=== PATIENT | female | born 1975 | race Caucasian/White ===

== ENCOUNTER → 2017-04-02 | Outpatient (CLI) | payer OTHER ==
[~2017-04-02] MED LIST: ALBUAER19 INH; BUPR-102 PO; BUPR8MIS UT; GADAVIST IV PRN; MULT-222 PO; ONDA8TAB6 PO; RANI150T2 PO
--- NOTE | 2017-04-02 14:43 | DIAGNOSTIC IMAGING REPORT ---
Brain MRI WITH AND WITHOUT CONTRAST HISTORY: ANOSMIA TECHNIQUE: Multiplanar multisequence MRI of the brain was performed both before and after the intravenous administration of contrast. COMPARISON STUDY: Head CT 08/13/2013. FINDINGS: There are no areas of restricted diffusion to suggest acute infarction. The midline structures are intact. Mild mucosal thickening within the ethmoid air cells. No fluid levels within the paranasal sinuses.. The mastoid air cells are clear. The ventricles and sulci are within normal limits for age. There is no mass, hematoma, midline shift. The major vascular flow-voids at the skull base are well maintained. Postcontrast sequences show no areas of abnormal enhancement. IMPRESSION: No acute intracranial abnormality. Electronically signed by: Don Ordaz M.D. 04/02/2017 2:42 PM Dictated Date/Time: 04/02/2017 2:13 PM
== END | disposition home or self-care (01) ==
LOC: C.OPENMRI 12:52
PROVIDERS: ATTEND Otolaryngology
DX: R43.0 Anosmia (principal)

== ENCOUNTER 2024-10-01 15:43 | Observation (INO) ==
--- NOTE | 2024-10-01 16:21 | Emergency Department Note ---
History of Present Illness General Chief complaint: Back Injury/Pain Stated complaint: BACK PAIN/INJURY Time Seen by Provider: 10/01/24 16:20 History of Present Illness Maximum Pain Intensity: 8 This is a 49-year-old female that presents to the emergency department via private vehicle with complaints of "back pain". 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 She notes pain since that time. She also notes new onset stool incontinence. She also feels like the legs feel a bit weak. Patient does also note some abdominal pain. No fever. Patient denies any history of L-spine surgery. She denies any IV drug use. Pain worse with movement and mildly better with rest. Home Medications Medication Instructions Recorded Confirmed Type buprenorphine 8 mg-naloxone 2 mg 2 film sublingual BID 06/25/21 10/01/24 History sublingual film ondansetron HCl 4 mg tablet 4 mg PO Q8H PRN Nausea 11/19/21 10/01/24 History methocarbamol 500 mg tablet 500 mg PO Q8H #14 tabs 05/29/24 10/01/24 Rx dextroamphetamine-amphetamine 20 20 mg PO DAILY 10/01/24 10/01/24 History mg tablet duloxetine 20 mg capsule,delayed 40 mg PO DAILY 10/01/24 10/01/24 History release duloxetine 60 mg capsule,delayed 60 mg PO HS 10/01/24 10/01/24 History release lisinopril 10 mg tablet 10 mg PO DAILY 10/01/24 10/01/24 History apxyluwc-zuha-mpgl 8 mg-folic 400 1 tab PO DAILY 10/01/24 10/01/24 History mcg-K 50 mcg-lutein 300 mcg tablet (Multivitamin Women 50 Plus) Allergies Allergy/AdvReac Type Severity Reaction Status Date / Time iodine Allergy Mild RASH Verified 10/01/24 21:24 adhesive AdvReac Intermediate RASH Verified 10/01/24 21:24 Past Med/Surg History Problem List (Updated 10/02/24 @ 11:35 by Cong Stanley DO) Hypoglycemia Opioid dependence on maintenance agonist therapy, no symptoms UTI due to Klebsiella species Pars defect of lumbar spine Degenerative disc disease at L5-S1 level Bilateral lumbar radiculopathy Neural foraminal stenosis of lumbosacral spine UTI (urinary tract infection) (Acute) Back pain (Acute) COVID-19 (Acute) SOB (shortness of breath) (Acute) Acute bronchitis (Acute) Spinal stenosis of lumbar region (Chronic) Contusion of foot (Acute) Dental abscess (Acute) Post-operative infection (Acute) SOB (shortness of breath) (Acute) Social History Smoking Status: Unknown if ever smoked Tobacco Type: Cigarettes Hx Alcohol Use: No Hx Substance Use: No Preferred Language: Sami Communication Ability: Effective Orthodontic Technician Assistant Required: No Beliefs That Will Affect Care: None Current Living Situation: Family Feels Safe at Home: Yes Assistive Devices: Cane Review of Systems A total of 10 systems reviewed and were otherwise negative Physical Exam Vital Signs Vital Signs - 24 hr 10/01/24 19:18 10/01/24 19:30 10/01/24 20:30 Pulse Rate 100 H 101 H Pulse Rate [Apical] 93 H Pulse Rate from SpO2 Sensor 100 H 101 H Respiratory Rate 20 20 18 Blood Pressure 157/109 H 160/91 H Blood Pressure [Left Arm] 136/107 H Blood Pressure Mean 125 136 Blood Pressure Mean [Left Arm] 116 Blood Pressure Position [Left Arm] Sitting Pulse Oximetry 100 100 98 Oxygen Delivery Method Room Air Room Air Room Air 10/01/24 20:33 10/01/24 21:00 10/01/24 21:03 Pulse Rate 97 H 94 H Pulse Rate [Apical] 89 Pulse Rate from SpO2 Sensor 97 H 94 H Respiratory Rate 16 18 18 Blood Pressure 136/107 H 152/90 H Blood Pressure [Left Arm] 179/113 H Blood Pressure Mean 116 110 Blood Pressure Mean [Left Arm] 135 Blood Pressure Position [Left Arm] Sitting Pulse Oximetry 99 96 96 Oxygen Delivery Method Room Air Room Air Room Air VITAL SIGNS - Vital signs and nursing notes were reviewed. Hypertensive, otherwise stable and afebrile. GENERAL -49-year-old female appearing her stated age who is in no acute distress. Communicates well with provider and answers questions appropriately. SKIN - Without rashes. No meningeal or petechial rash. The skin overlying the low back is unremarkable. HEAD - NC/AT. EYES - PERRL with EOMI bilaterally. Sclera anicteric. EARS - No deformities of external structures noted on gross examination bilaterally. NOSE - Midline and without cyanosis. No epistaxis or purulent drainage noted. MOUTH/OROPHARYNX - Without perioral cyanosis. NECK - Neck with FROM. No nuchal rigidity. LUNGS - CTA CARDIAC - RRR ABDOMEN - Abdominal contour normal without pulsations or visible masses. BS normoactive all four quadrants. Generalized abdominal tenderness predominantly on the left mid abdomen. No rigidity. No palpable masses, hepatosplenomegaly, or ascites noted. EXTREMITIES - No clubbing or peripheral cyanosis. +5/5 strength noted in UE/LE bilaterally. NEUROLOGIC - Cranial nerves grossly intact. PSYCH -alert, oriented and pleasant on exam. Course Administered Medications Acetaminophen (Acetaminophen 500 Mg Tab) 1,000 mg PO Q8 BROOKS Stop: 11/01/24 13:59 Last Admin: 10/02/24 14:15 Dose: 1,000 mg Documented By: MNQuintin Co-signed By: ROB Amphetamine/Dextroamphetamine (Dextroamphetamine/Amphetamine Ir 20 Mg Tab) 20 mg PO DAILY [facility] Stop: 10/16/24 08:59 Last Admin: 10/02/24 09:58 Dose: 20 mg Documented By: MARIA EUGENIA Buprenorphine HCl (Buprenorphine Hcl 2 Mg Subl) 4 mg SL Q3H PRN PRN Reason: Pain Stop: 11/01/24 11:21 Last Admin: 10/02/24 15:14 Dose: 4 mg Documented By: TAI Co-signed By: SOHA Admin: 10/02/24 12:14 Dose: 4 mg Documented By: MARIA EUGENIA Enoxaparin Sodium (Enoxaparin Inj 40 Mg/0.4 Ml Syr) 40 mg SQ PM [facility]OOKS Stop: 10/31/24 22:46 Last Admin: 10/01/24 23:45 Dose: 40 mg Documented By: ANNALEE Gabapentin (Gabapentin 300 Mg Cap) 300 mg PO TID [facility]KS Stop: 11/01/24 13:59 Last Admin: 10/02/24 15:02 Dose: 300 mg Documented By: TAI Co-signed By: SOHA Lidocaine (Lidocaine 5% 1 Patch) 1 patch TD QAM [facility]KS Stop: 11/01/24 11:29 Last Admin: 10/02/24 12:48 Dose: 1 patch Documented By: MARIA EUGENIA Lisinopril (Lisinopril 10 Mg Tab) 10 mg PO DAILY [facility] Stop: 11/01/24 08:59 Last Admin: 10/02/24 08:53 Dose: 10 mg Documented By: MARIA EUGENIA Methocarbamol (Methocarbamol 500 Mg Tablet) 500 mg PO TID [facility] Stop: 11/01/24 13:59 Last Admin: 10/02/24 14:18 Dose: 500 mg Documented By: TAI Co-signed By: ROB Multivitamins/Minerals (Cerovite Adv Formula Tab) 1 tab PO DAILY [facility]KS Stop: 11/01/24 08:59 Last Admin: 10/02/24 08:53 Dose: 1 tab Documented By: MARIA EUGENIA Discontinued Medications Acetaminophen (Acetaminophen 325 Mg Tab) 650 mg PO Q4H PRN PRN Reason: Pain or Fever Stop: 10/31/24 22:46 Last Admin: 10/02/24 06:05 Dose: 650 mg Documented By: Buprenorphine/Naloxone (Buprenorphine/Naloxone 8/2 Mg Tab) 2 tab SL BID BROOKS Stop: 11/01/24 11:29 Last Admin: 10/02/24 12:09 Dose: Not Given Documented By: MARIA EUGENIA Duloxetine HCl (Duloxetine Hcl 20 Mg Cap) 40 mg PO DAILY [facility] Stop: 11/01/24 08:59 Last Admin: 10/02/24 08:54 Dose: 40 mg Documented By: MARIA EUGENIA Hydromorphone HCl (Hydromorphone Inj 0.5 Mg/0.5 Ml Syr) 0.5 mg IV Q6H PRN PRN Reason: Mod-Sev Pain (Scale 4-10) Stop: 10/15/24 22:46 Last Admin: 10/02/24 03:59 Dose: 0.5 mg Documented By: Ceftriaxone Sodium (Rocephin) 2,000 mg in 50 mls @ 100 mls/hr IV NOW STA Stop: 10/01/24 20:54 Last Infusion: 10/01/24 21:46 Dose: Infused Documented By: Admin: 10/01/24 20:30 Dose: 100 mls/hr Documented By: PAUL Dextrose/Sodium Chloride (D5w And 1/2nss) 1,000 mls @ 80 mls/hr IV .[id number] BROOKS Stop: 10/02/24 22:46 Last Admin: 10/02/24 11:51 Dose: Not Given Documented By: MARIA EUGENIA Infusion: 10/02/24 11:50 Dose: Infused Documented By: MARIA EUGENIA Admin: 10/01/24 23:45 Dose: 80 mls/hr Documented By: ANNALEE Ioversol (Optiray 320 100ml) 91 ml IV ONCE ONE Stop: 10/01/24 19:42 Last Admin: 10/01/24 19:41 Dose: 91 ml Documented By: SRINIVASA Lorazepam (Lorazepam 1 Mg Tab) 0.5 mg SL NOW STA Stop: 10/01/24 17:38 Last Admin: 10/01/24 17:47 Dose: 0.5 mg Documented By: MARTY Methocarbamol (Methocarbamol 500 Mg Tablet) 500 mg PO Q8H BROOKS Stop: 10/31/24 22:59 Last Admin: 10/02/24 08:54 Dose: 500 mg Documented By: MARIA EUGENIA Admin: 10/01/24 23:45 Dose: 500 mg Documented By: ANNALEE Morphine Sulfate (Morphine Sulfate 4 Mg/Ml 1 Ml Carp\\Vial) 4 mg IV NOW STA Stop: 10/01/24 16:33 Last Admin: 10/01/24 16:49 Dose: 4 mg Documented By: MARTY Ondansetron HCl (Ondansetron Inj 2 Mg/Ml 2 Ml Vial) 4 mg IV NOW STA Stop: 10/01/24 16:33 Last Admin: 10/01/24 16:48 Dose: 4 mg Documented By: MARTY Medical Decision Making Laboratory Data 10/02/24 03:08 10/02/24 10:24 Lab Results 10/01/24 10/01/24 10/01/24 Range/Units 16:40 17:50 18:20 WBC 8.93 (4.8-10.8) K/ul RBC 4.78 (4.20-5.40) M/uL Hgb 13.4 (12.0-16.0) g/dl Hct 40.2 (37.0-47.0) % MCV 84.1 (80.0-100.0) fL MCH 28.0 (25.0-34.0) pg MCHC 33.3 (32.0-36.0) g/dL RDW Std Deviation 40.4 (36.4-46.3) fL RDW Coeff of Bryce 13.2 (11.5-14.5) % Plt Count 327 (130-400) K/uL MPV 10.1 (9.4-12.4) fL Immature Gran % (Auto) 0.3 % Neut % (Auto) 56.0 % Lymph % (Auto) 32.1 % Webb % (Auto) 7.5 % Eos % (Auto) 3.5 % Baso % (Auto) 0.6 % Neut # (Auto) 5.00 (1.40-6.50) K/uL Lymph # (Auto) 2.87 (1.20-3.40) K/uL Webb # (Auto) 0.67 H (0.11-0.59) K/uL Eos # (Auto) 0.31 (0.00-0.50) K/uL Baso # (Auto) 0.05 (0.00-0.20) K/uL Immature Gran # (Auto) 0.03 (0.01-0.20) K/uL Sodium 138 (136-145) mmol/L Potassium 3.5 (3.5-5.1) mmol/L Chloride 105 (98-107) mmol/L Carbon Dioxide 27 (21-32) mmol/L Anion Gap 6 (3-11) BUN 17 (6-23) mg/dl Creatinine 0.67 (0.6-1.2) mg/dl Est Cr Clr Drug Dosing 117.4 ml/min eGFR 106.41 BUN/Creatinine Ratio 25.4 H (10-20) Glucose 32 L* (70-99(Fasting)) mg/dl POC Glucose 82 (70-99) mg/dl Calcium 10.2 (8.6-10.3) mg/dl Magnesium 2.1 (1.7-2.4) mg/dl Total Bilirubin 0.5 (0.2-1.0) mg/dl AST 16 (13-39) U/L ALT 13 (7-52) U/L Alkaline Phosphatase 149 H (34-104) U/L Total Protein 8.1 (6.0-8.3) gm/dl Albumin 4.4 (3.4-5.0) gm/dl Globulin 3.7 (2.5-4.0) gm/dl Albumin/Globulin Ratio 1.2 (0.9-2) Lipase 13 (11-82) U/L Urine Color Yellow Urine Appearance Clear (Clear) Urine pH 5.5 (4.5-7.5) Ur Specific Crescent 1.013 (1.000-1.030) Urine Protein Negative (Negative) Urine Glucose (UA) Negative (Negative) Urine Ketones Negative (Negative) Urine Blood Negative (Negative) Urine Nitrite Positive A (Negative) Urine Bilirubin Negative (Negative) Urine Urobilinogen Negative (Negative) Ur Leukocyte Esterase Trace H (Negative) Urine WBC (Auto) 0-5 (0-5) /hpf Urine RBC (Auto) 0-2 (0-2) /hpf U Hyaline Cast (Auto) 0-2 (0-2) /lpf U Epithel Cells (Auto) 6-10 H (0-2) /hpf Urine Bacteria (Auto) 4+ H (None Seen) Imaging Data Radiologist's Impression: Lumbar Spine MRI 10/01/24 16:32 Exam(s): MRI L SPINE Without Contrast EXAM: MR Lumbar Spine Without Intravenous Contrast CLINICAL HISTORY: Reason for exam: low back, bowel incontinence, legs weak. TECHNIQUE: Magnetic resonance images of the lumbar spine without intravenous contrast in multiple planes. COMPARISON: CT scan from August 13, 2013 FINDINGS: Vertebrae: There are chronic appearing bilateral pars defects at L5 and 6 mm grade 1 anterior listhesis of L5 on S1. No acute fracture. Spinal cord: Unremarkable. Normal signal. Soft tissues: Unremarkable. DISCS/SPINAL CANAL/NEURAL FORAMINA: L1-L2: Unremarkable. No significant disc disease. No stenosis. L2-L3: Unremarkable. No significant disc disease. No stenosis. L3-L4: Unremarkable. No significant disc disease. No stenosis. L4-L5: Unremarkable. No significant disc disease. No stenosis. L5-S1: Disc dehydration and loss of disc space height at L5-S1. There is 4 mm posterior disc bulge without spinal stenosis. There is moderate to severe bilateral neural foraminal narrowing. IMPRESSION: 1. There are chronic appearing bilateral pars defects at L5 and 6 mm grade 1 anterior listhesis of L5 on S1. 2. Disc dehydration and loss of disc space height at L5-S1. There is 4 mm posterior disc bulge without spinal stenosis. There is moderate to severe bilateral neural foraminal narrowing. Electronically signed by: Orlando Loaiza MD 10/01/24 19:35 PM Abdomen/Pelvis CT 10/01/24 16:39 Exam(s): CT ABDOMEN + PELVIS With Contrast IV Amt: 91 ml optiray 320 EXAM: CT Abdomen and Pelvis With Intravenous Contrast CLINICAL HISTORY: Reason for exam: Low back and abdominal pain. TECHNIQUE: Axial computed tomography images of the abdomen and pelvis with intravenous contrast. CTDI is 27.76 mGy and DLP is 1257.2 mGy-cm. Automated exposure control was utilized for the study. A dose lowering technique was utilized adhering to the principles of ALARA. CONTRAST: Patient received 91 ml optiray 320 of IV contrast COMPARISON: July 02, 2011 FINDINGS: Lung bases: Unremarkable. No mass. No consolidation. ABDOMEN: Liver: The liver is enlarged measuring 23 cm craniocaudad. No focal liver mass lesion is seen. Gallbladder and bile ducts: Slight biliary duct prominence postcholecystectomy. No choledocholithiasis is seen. Pancreas: Unremarkable. No mass. No ductal dilation. Spleen: Unremarkable. No splenomegaly. Adrenals: Unremarkable. No mass. Kidneys and ureters: There is a nonobstructive 3 mm calyceal calculus in the upper pole the right kidney. The kidneys are otherwise unremarkable. No hydronephrosis or ureterolithiasis is seen. Stomach and bowel: Unremarkable. No obstruction. No mucosal thickening. PELVIS: Appendix: The appendix is not visible. Bowel loops are nondilated. No pneumoperitoneum, free fluid, or acute inflammatory changes are seen involving the bowel. Bladder: Unremarkable. No mass. Reproductive: Unremarkable as visualized. ABDOMEN and PELVIS: Intraperitoneal space: See above. Bones/joints: There are chronic bilateral pars defects at L5 with 3 mm grade 1 anterolisthesis of L5 on S1. No acute fracture or destructive bone lesion is seen. No dislocation. Soft tissues: Unremarkable. Vasculature: Unremarkable. No abdominal aortic aneurysm. Lymph nodes: Unremarkable. No enlarged lymph nodes. IMPRESSION: 1. The appendix is not visible. Bowel loops are nondilated. No pneumoperitoneum, free fluid, or acute inflammatory changes are seen involving the bowel. 2. The liver is enlarged measuring 23 cm craniocaudad. No focal liver mass lesion is seen. 3. There is a nonobstructive 3 mm calyceal calculus in the upper pole the right kidney. The kidneys are otherwise unremarkable. No hydronephrosis or ureterolithiasis is seen. Electronically signed by: Orlando Loaiza MD 10/01/24 20:27 PM MDM Narrative Patient was seen and evaluated as above in room D01. Review was performed of triage nursing notes and vital signs. Patient presents for evaluation of low back pain. Patient well-appearing and nontoxic on assessment. She does have also abdominal tenderness on assessment. Options of care were discussed with the patient. IV access with established. Labs are drawn. Patellar reflexes are within normal limits. However, patient does note stool incontinence with the back pain. Will proceed with MRI. I was sent a critical about the patient's glucose of 32 at 6:12 PM. Patient was MRI at that time. I immediately went to the MRI scanner to evaluate the patient. She was alert and oriented. Fingerstick glucose was 82. Patient was given apple juice. The 32 could have been a lab error but the patient did have some mints and a drink following the initial blood draw which could have theoretically elevated the sugar back to 82. Patient went back to MRI. Patient did need medicine because she felt claustrophobic in the MRI scanner therefore a small dose of sublingual Ativan was ordered. I did ask that we continue pulse ox monitoring in the MRI scanner as the patient did receive IV analgesia earlier in her stay here. Patient did have mild hypoxia which was quickly supplemented with a small amount of O2 via nasal cannula. No hypoxia issues noted. Labs reveal no leukocytosis or concerning anemia. No emergent metabolic disturbance. Urinalysis reveals likely UTI. MRI of the L-spine is as above. This does not have any finding suggest cauda equina syndrome at the present time. CT scan abdomen/pelvis also ordered and results as above and this was essentially negative for acute process. Patient does have significant trouble ambulating noting the back pain. Also noted a UTI, this could be developing pyelonephritis despite negative CT. Will proceed with IV antibiotics and inpatient management. Please refer to further documentation regarding her stay. GCS: 15 In the evaluation and treatment of this patient the following differential diagnoses were entertained: UTI, pyelonephritis, cauda equina syndrome, strain, sprain, fracture, acute abdomen, bowel obstruction, among others. Impression & Plan Back pain, UTI (urinary tract infection) Discharge Plan Visit Data Chief Complaint: Back Injury/Pain Stated Complaint: BACK PAIN/INJURY ED Provider: Orlando Murray ED Midlevel Provider: Valdo Bazzi Discharge Problem: Back pain, UTI (urinary tract infection) Patient Disposition: Admitted As Inpatient Condition: Good Discharge Instructions Interventions: ED Discharge Assessment Last Done: 10/01/24 22:48
[2024-10-01] MEDS: ONDANSETRON INJ 2 MG/ML 2 ML VIAL IV STA (16:48)
[2024-10-01] MEDS: MoRPHine SULFATE 4 MG/ML 1 ML CARP\\VIAL IV STA (16:49)
[2024-10-01 17:09] LABS: Basophils # (auto) 0.05 K/uL (0.00-0.20); Basophils % (auto) 0.6 %; Eosinophils # (auto) 0.31 K/uL (0.00-0.50); Eosinophils % (auto) 3.5 %; Hematocrit (blood only) 40.2 % (37.0-47.0); Hemoglobin 13.4 g/dl (12.0-16.0); Immature Granulocytes # (auto) 0.03 K/uL (0.01-0.20); Immature Granulocytes % (auto) 0.3 %; Lymphocytes # (auto) 2.87 K/uL (1.20-3.40); Lymphocytes % (auto) 32.1 %; Mean Corpuscular Hgb Conc 33.3 g/dL (32.0-36.0); Mean Corpuscular Volume 84.1 fL (80.0-100.0); Mean Platelet Volume 10.1 fL (9.4-12.4); Monocytes # (auto) 0.67 K/uL (0.11-0.59); Monocytes % (auto) 7.5 %; Platelet Count 327 K/uL (130-400); RDW Coefficient of Variation 13.2 % (11.5-14.5); RDW Standard Deviation 40.4 fL (36.4-46.3); Red Blood Count 4.78 M/uL (4.20-5.40); White Blood Count 8.93 K/ul (4.8-10.8)
[2024-10-01 17:36] LABS: Albumin Level 4.4 gm/dl (3.4-5.0); Bilirubin,Total 0.5 mg/dl (0.2-1.0); Calcium 10.2 mg/dl (8.6-10.3); Magnesium 2.1 mg/dl (1.7-2.4); Potassium 3.5 mmol/L (3.5-5.1)
[2024-10-01] MEDS: LORazepam 1 MG TAB SL STA (17:47)
[2024-10-01 18:11] LABS: Appearance Urine Clear (Clear); Bacteria Urine Automated 4+ (None Seen); Bilirubin Urine Negative (Negative); Blood Urine Negative (Negative); Cast Urine Automated 0-2 /lpf (0-2); Color Urine Yellow; Glucose Urine UA Negative (Negative); Ketones Urine Negative (Negative); Leukocyte Esterase Urine Trace (Negative); Nitrite Urine Positive (Negative); Protein Urine Negative (Negative); RBC Urine Automated 0-2 /hpf (0-2); Specific Gravity Urine 1.013 (1.000-1.030); Urobilinogen Urine Negative (Negative); WBC Urine Automated 0-5 /hpf (0-5); pH Urine 5.5 (4.5-7.5)
[2024-10-01 18:13] LABS: Albumin Globulin Ratio 1.2 (0.9-2); BUN Creatinine Ratio 25.4 (10-20); Creatinine Clr Calc Pharmacy 117.4 ml/min; Globulin 3.7 gm/dl (2.5-4.0); Total Protein 8.1 gm/dl (6.0-8.3)
--- NOTE | 2024-10-01 19:35 | Magnetic Resonance Report ---
Exam(s): MRI L SPINE Without Contrast EXAM: MR Lumbar Spine Without Intravenous Contrast CLINICAL HISTORY: Reason for exam: low back, bowel incontinence, legs weak. TECHNIQUE: Magnetic resonance images of the lumbar spine without intravenous contrast in multiple planes. COMPARISON: CT scan from August 13, 2013 FINDINGS: Vertebrae: There are chronic appearing bilateral pars defects at L5 and 6 mm grade 1 anterior listhesis of L5 on S1. No acute fracture. Spinal cord: Unremarkable. Normal signal. Soft tissues: Unremarkable. DISCS/SPINAL CANAL/NEURAL FORAMINA: L1-L2: Unremarkable. No significant disc disease. No stenosis. L2-L3: Unremarkable. No significant disc disease. No stenosis. L3-L4: Unremarkable. No significant disc disease. No stenosis. L4-L5: Unremarkable. No significant disc disease. No stenosis. L5-S1: Disc dehydration and loss of disc space height at L5-S1. There is 4 mm posterior disc bulge without spinal stenosis. There is moderate to severe bilateral neural foraminal narrowing. IMPRESSION: 1. There are chronic appearing bilateral pars defects at L5 and 6 mm grade 1 anterior listhesis of L5 on S1. 2. Disc dehydration and loss of disc space height at L5-S1. There is 4 mm posterior disc bulge without spinal stenosis. There is moderate to severe bilateral neural foraminal narrowing. Electronically signed by: Orlando Loaiza MD 10/01/24 19:35 PM
[2024-10-01] MEDS: OPTIRAY 320 100ml IV ONE (19:41)
--- NOTE | 2024-10-01 20:28 | CT Scan Report ---
Exam(s): CT ABDOMEN + PELVIS With Contrast IV Amt: 91 ml optiray 320 EXAM: CT Abdomen and Pelvis With Intravenous Contrast CLINICAL HISTORY: Reason for exam: Low back and abdominal pain. TECHNIQUE: Axial computed tomography images of the abdomen and pelvis with intravenous contrast. CTDI is 27.76 mGy and DLP is 1257.2 mGy-cm. Automated exposure control was utilized for the study. A dose lowering technique was utilized adhering to the principles of ALARA. CONTRAST: Patient received 91 ml optiray 320 of IV contrast COMPARISON: July 02, 2011 FINDINGS: Lung bases: Unremarkable. No mass. No consolidation. ABDOMEN: Liver: The liver is enlarged measuring 23 cm craniocaudad. No focal liver mass lesion is seen. Gallbladder and bile ducts: Slight biliary duct prominence postcholecystectomy. No choledocholithiasis is seen. Pancreas: Unremarkable. No mass. No ductal dilation. Spleen: Unremarkable. No splenomegaly. Adrenals: Unremarkable. No mass. Kidneys and ureters: There is a nonobstructive 3 mm calyceal calculus in the upper pole the right kidney. The kidneys are otherwise unremarkable. No hydronephrosis or ureterolithiasis is seen. Stomach and bowel: Unremarkable. No obstruction. No mucosal thickening. PELVIS: Appendix: The appendix is not visible. Bowel loops are nondilated. No pneumoperitoneum, free fluid, or acute inflammatory changes are seen involving the bowel. Bladder: Unremarkable. No mass. Reproductive: Unremarkable as visualized. ABDOMEN and PELVIS: Intraperitoneal space: See above. Bones/joints: There are chronic bilateral pars defects at L5 with 3 mm grade 1 anterolisthesis of L5 on S1. No acute fracture or destructive bone lesion is seen. No dislocation. Soft tissues: Unremarkable. Vasculature: Unremarkable. No abdominal aortic aneurysm. Lymph nodes: Unremarkable. No enlarged lymph nodes. IMPRESSION: 1. The appendix is not visible. Bowel loops are nondilated. No pneumoperitoneum, free fluid, or acute inflammatory changes are seen involving the bowel. 2. The liver is enlarged measuring 23 cm craniocaudad. No focal liver mass lesion is seen. 3. There is a nonobstructive 3 mm calyceal calculus in the upper pole the right kidney. The kidneys are otherwise unremarkable. No hydronephrosis or ureterolithiasis is seen. Electronically signed by: Orlando Loaiza MD 10/01/24 20:27 PM
[2024-10-01] MEDS: cefTRIAXone SODIUM 2,000 MG/50 ML BAG IV STA (20:30)
--- NOTE | 2024-10-01 22:08 | History & Physical Report ---
Date of Service October 01, 2024 Assessment & Plan (1) Back pain: Plan: 49-year-old female with past medical history significant for gestational diabetes, asthma mild persistent, increased edema of vocal cords, chronic ethmoidal sinusitis, Raynaud's disease, venous insufficiency, peptic ulcer disease, GERD, obesity, overactive bladder, mild myositis, fibromyalgia, tinnitus of right ear, neuropathy, iron deficiency anemia, dysphonia, opioid dependence, anxiety presents with severe back pain. Patient says since last having severe low back pain. At times pain is shooting into her right thigh and left knee region. Having difficulty walking because of pain. Which prompted her to come to ER. In the ER that she had episode of blood sugars been 32 on the blood work. Fingerstick was 82. She was asymptomatic. Also found to have a UTI. Currently resting comfortably and vital stable. Patient states has nausea. And not eating much. She has chest pain earlier which is currently resolved. Denies any shortness of breath. Denies any hematuria. Denies burning micturition. Says stools are somewhat soft and sometimes she has to run to the bathroom.Has some abdominal pain. Feeling feverish. No headache. Vision somewhat blurry. No double vision. Has runny nose. No sore throat. No cough. Hemodynamics are okay. Severe low back pain MRI lumbar spine shows posterior disc bulge at L5-S1. Moderate to severe bilateral neural foraminal narrowing Pain control Orthospine consult in a.m. Abdominal pain CT abdomen pelvis okay Monitor UTI Rocephin Follow cultures Episode of hypoglycemia History of gestational diabetes Close monitor blood glucose levels D5 half-normal saline Follow HbA1c levels Chronic pain and fibromyalgia Continue home pain medication Hypertension On lisinopril Will monitor DVT prophylaxis Lovenox Disposition Med/telemetry Full code. History of Present Illness Chief Complaint: Back pain Primary Care Provider: Marylou Carrillo MD 49-year-old female with past medical history significant for gestational diabetes, asthma mild persistent, increased edema of vocal cords, chronic ethmoidal sinusitis, Raynaud's disease, venous insufficiency, peptic ulcer disease, GERD, obesity, overactive bladder, mild myositis, fibromyalgia, tinnitus of right ear, neuropathy, iron deficiency anemia, dysphonia, opioid dependence, anxiety presents with severe back pain. Patient says since last having severe low back pain. At times pain is shooting into her right thigh and left knee region. Having difficulty walking because of pain. Which prompted her to come to ER. In the ER that she had episode of blood sugars been 32 on the blood work. Fingerstick was 82. She was asymptomatic. Also found to have a UTI. Currently resting comfortably and vital stable. Patient states has nausea. And not eating much. She has chest pain earlier which is currently resolved. Denies any shortness of breath. Denies any hematuria. Denies burning micturition. Says stools are somewhat soft and sometimes she has to run to the bathroom.Has some abdominal pain. Feeling feverish. No headache. Vision somewhat blurry. No double vision. Has runny nose. No sore throat. No cough. Hemodynamics are okay. Past medical history. As mentioned above Past surgical history. . Colonoscopy and EGD. History of gastric fundoplasty. Esophagoscopy. Eyelid surgery. Ligation of oviducts. Nasal endoscopy. Appendectomy. Cholecystectomy. Repair of incisional hernia. Repair of nasal septum. Stereotactic cranial extradural navigation. Umbilical hernia repair. Vagotomy and pyloroplasty. Family history. Sister had breast cancer. Maternal grandmother had breast cancer. Daughter has Crohn's. Maternal grandfather had [place]. Social history. Quit smoking 2018. Smoked 0.3 pack a day for 15 years. No alcohol use. No drug use. Allergies Allergy/AdvReac Type Severity Reaction Status Date / Time iodine Allergy Mild RASH Verified 10/01/24 21:24 adhesive AdvReac Intermediate RASH Verified 10/01/24 21:24 Home Medications Medication Instructions Recorded Confirmed Type buprenorphine 8 mg-naloxone 2 mg 2 film sublingual BID 06/25/21 10/01/24 History sublingual film ondansetron HCl 4 mg tablet 4 mg PO Q8H PRN Nausea 11/19/21 10/01/24 History methocarbamol 500 mg tablet 500 mg PO Q8H #14 tabs 05/29/24 10/01/24 Rx dextroamphetamine-amphetamine 20 20 mg PO DAILY 10/01/24 10/01/24 History mg tablet duloxetine 20 mg capsule,delayed 40 mg PO DAILY 10/01/24 10/01/24 History release duloxetine 60 mg capsule,delayed 60 mg PO HS 10/01/24 10/01/24 History release lisinopril 10 mg tablet 10 mg PO DAILY 10/01/24 10/01/24 History flhlpkpb-[id number]-[id number] 8 mg-folic 400 1 tab PO DAILY 10/01/24 10/01/24 History mcg-K 50 mcg-lutein 300 mcg tablet (Multivitamin Women 50 Plus) Past Med/Surg History Problem List (Updated 10/01/24 @ 23:45 by Valdo Bazzi PA-C) UTI (urinary tract infection) (Acute) Back pain (Acute) COVID-19 (Acute) SOB (shortness of breath) (Acute) Acute bronchitis (Acute) Spinal stenosis of lumbar region (Chronic) Contusion of foot (Acute) Dental abscess (Acute) Post-operative infection (Acute) SOB (shortness of breath) (Acute) Social History Smoking Status: Unknown if ever smoked Tobacco Type: Cigarettes Hx Alcohol Use: No Hx Substance Use: No Preferred Language: Irish Communication Ability: Effective Mirror Framer Required: No Beliefs That Will Affect Care: None Current Living Situation: Family Feels Safe at Home: Yes Assistive Devices: None Review of Systems Review of Systems: All systems reviewed & are unremarkable except as noted in HPI & below Physical Exam Physical Exam: General-Not in distress Head- atraumatic Eyes- PERRL. ENT- oropharynx clear Neck- supple, no JVD. Lungs- clear to auscultation no wheezing or crackles Heart- regular rhythm; no murmur, no gallop. Abdomen- normal bowel sounds, soft, diffuse tender, no distension. Extremities- no pretibial edema, no erythema seen Neuro- alert, oriented PERRL, no facial palsy; no dysarthria; moves extremities. Musculoskeletal b/l Straight leg positive Results & Data Results & Data Vital Signs (Past 12 Hours) Vital Signs Temp Pulse Pulse Resp BP BP Pulse Ox 10/01/24 20:30 93 H 18 136/107 H 98 10/01/24 17:12 98 H 10/01/24 16:52 107 H 18 96 10/01/24 16:50 108 H 19 210/110 H 98 10/01/24 15:51 36.9 C 119 H 18 210/106 H 98 O2 Del Method 10/01/24 20:30 Room Air 10/01/24 17:12 10/01/24 16:52 Room Air 10/01/24 16:50 Room Air 10/01/24 15:51 Room Air Diagnostic Findings Laboratory Results WBC 8.93 K/ul (4.8-10.8) 10/01/24 16:40 RBC 4.78 M/uL (4.20-5.40) 10/01/24 16:40 Hgb 13.4 g/dl (12.0-16.0) 10/01/24 16:40 Hct 40.2 % (37.0-47.0) 10/01/24 16:40 MCV 84.1 fL (80.0-100.0) 10/01/24 16:40 MCH 28.0 pg (25.0-34.0) 10/01/24 16:40 MCHC 33.3 g/dL (32.0-36.0) 10/01/24 16:40 RDW Std Deviation 40.4 fL (36.4-46.3) 10/01/24 16:40 RDW Coeff of Bryce 13.2 % (11.5-14.5) 10/01/24 16:40 Plt Count 327 K/uL (130-400) 10/01/24 16:40 MPV 10.1 fL (9.4-12.4) 10/01/24 16:40 Immature Gran % (Auto) 0.3 % 10/01/24 16:40 Neut % (Auto) 56.0 % 10/01/24 16:40 Lymph % (Auto) 32.1 % 10/01/24 16:40 [place] % (Auto) 7.5 % 10/01/24 16:40 Eos % (Auto) 3.5 % 10/01/24 16:40 Baso % (Auto) 0.6 % 10/01/24 16:40 Neut # (Auto) 5.00 K/uL (1.40-6.50) 10/01/24 16:40 Lymph # (Auto) 2.87 K/uL (1.20-3.40) 10/01/24 16:40 [place] # (Auto) 0.67 K/uL (0.11-0.59) H 10/01/24 16:40 Eos # (Auto) 0.31 K/uL (0.00-0.50) 10/01/24 16:40 Baso # (Auto) 0.05 K/uL (0.00-0.20) 10/01/24 16:40 Immature Gran # (Auto) 0.03 K/uL (0.01-0.20) 10/01/24 16:40 Sodium 138 mmol/L (136-145) 10/01/24 16:40 Potassium 3.5 mmol/L (3.5-5.1) 10/01/24 16:40 Chloride 105 mmol/L (98-107) 10/01/24 16:40 Carbon Dioxide 27 mmol/L (21-32) 10/01/24 16:40 Anion Gap 6 (3-11) 10/01/24 16:40 BUN 17 mg/dl (6-23) 10/01/24 16:40 Creatinine 0.67 mg/dl (0.6-1.2) 10/01/24 16:40 Est Cr Clr Drug Dosing 117.4 ml/min 10/01/24 16:40 eGFR 106.41 10/01/24 16:40 BUN/Creatinine Ratio 25.4 (10-20) H 10/01/24 16:40 Glucose 32 mg/dl (70-99(Fasting)) L* 10/01/24 16:40 POC Glucose 82 mg/dl (70-99) 10/01/24 18:20 Calcium 10.2 mg/dl (8.6-10.3) 10/01/24 16:40 Magnesium 2.1 mg/dl (1.7-2.4) 10/01/24 16:40 Total Bilirubin 0.5 mg/dl (0.2-1.0) 10/01/24 16:40 AST 16 U/L (13-39) 10/01/24 16:40 ALT 13 U/L (7-52) 10/01/24 16:40 Alkaline Phosphatase 149 U/L (34-104) H 10/01/24 16:40 Total Protein 8.1 gm/dl (6.0-8.3) 10/01/24 16:40 Albumin 4.4 gm/dl (3.4-5.0) 10/01/24 16:40 Globulin 3.7 gm/dl (2.5-4.0) 10/01/24 16:40 Albumin/Globulin Ratio 1.2 (0.9-2) 10/01/24 16:40 Lipase 13 U/L (11-82) 10/01/24 16:40 Urine Color Yellow 10/01/24 17:50 Urine Appearance Clear (Clear) 10/01/24 17:50 Urine pH 5.5 (4.5-7.5) 10/01/24 17:50 Ur Specific [place] 1.013 (1.000-1.030) 10/01/24 17:50 Urine Protein Negative (Negative) 10/01/24 17:50 Urine Glucose (UA) Negative (Negative) 10/01/24 17:50 Urine Ketones Negative (Negative) 10/01/24 17:50 Urine Blood Negative (Negative) 10/01/24 17:50 Urine Nitrite Positive (Negative) A 10/01/24 17:50 Urine Bilirubin Negative (Negative) 10/01/24 17:50 Urine Urobilinogen Negative (Negative) 10/01/24 17:50 Ur Leukocyte Esterase Trace (Negative) H 10/01/24 17:50 Urine WBC (Auto) 0-5 /hpf (0-5) 10/01/24 17:50 Urine RBC (Auto) 0-2 /hpf (0-2) 10/01/24 17:50 U Hyaline Cast (Auto) 0-2 /lpf (0-2) 10/01/24 17:50 U Epithel Cells (Auto) 6-10 /hpf (0-2) H 10/01/24 17:50 Urine Bacteria (Auto) 4+ (None Seen) H 10/01/24 17:50 Impressions Lumbar Spine MRI 10/01/24 16:32 Exam(s): MRI L SPINE Without Contrast EXAM: MR Lumbar Spine Without Intravenous Contrast CLINICAL HISTORY: Reason for exam: low back, bowel incontinence, legs weak. TECHNIQUE: Magnetic resonance images of the lumbar spine without intravenous contrast in multiple planes. COMPARISON: CT scan from August 13, 2013 FINDINGS: Vertebrae: There are chronic appearing bilateral pars defects at L5 and 6 mm grade 1 anterior listhesis of L5 on S1. No acute fracture. Spinal cord: Unremarkable. Normal signal. Soft tissues: Unremarkable. DISCS/SPINAL CANAL/NEURAL FORAMINA: L1-L2: Unremarkable. No significant disc disease. No stenosis. L2-L3: Unremarkable. No significant disc disease. No stenosis. L3-L4: Unremarkable. No significant disc disease. No stenosis. L4-L5: Unremarkable. No significant disc disease. No stenosis. L5-S1: Disc dehydration and loss of disc space height at L5-S1. There is 4 mm posterior disc bulge without spinal stenosis. There is moderate to severe bilateral neural foraminal narrowing. IMPRESSION: 1. There are chronic appearing bilateral pars defects at L5 and 6 mm grade 1 anterior listhesis of L5 on S1. 2. Disc dehydration and loss of disc space height at L5-S1. There is 4 mm posterior disc bulge without spinal stenosis. There is moderate to severe bilateral neural foraminal narrowing. Electronically signed by: Orlando Loaiza MD 10/01/24 19:35 PM Abdomen/Pelvis CT 10/01/24 16:39 Exam(s): CT ABDOMEN + PELVIS With Contrast IV Amt: 91 ml optiray 320 EXAM: CT Abdomen and Pelvis With Intravenous Contrast CLINICAL HISTORY: Reason for exam: Low back and abdominal pain. TECHNIQUE: Axial computed tomography images of the abdomen and pelvis with intravenous contrast. CTDI is 27.76 mGy and DLP is 1257.2 mGy-cm. Automated exposure control was utilized for the study. A dose lowering technique was utilized adhering to the principles of ALARA. CONTRAST: Patient received 91 ml optiray 320 of IV contrast COMPARISON: July 02, 2011 FINDINGS: Lung bases: Unremarkable. No mass. No consolidation. ABDOMEN: Liver: The liver is enlarged measuring 23 cm craniocaudad. No focal liver mass lesion is seen. Gallbladder and bile ducts: Slight biliary duct prominence postcholecystectomy. No choledocholithiasis is seen. Pancreas: Unremarkable. No mass. No ductal dilation. Spleen: Unremarkable. No splenomegaly. Adrenals: Unremarkable. No mass. Kidneys and ureters: There is a nonobstructive 3 mm calyceal calculus in the upper pole the right kidney. The kidneys are otherwise unremarkable. No hydronephrosis or ureterolithiasis is seen. Stomach and bowel: Unremarkable. No obstruction. No mucosal thickening. PELVIS: Appendix: The appendix is not visible. Bowel loops are nondilated. No pneumoperitoneum, free fluid, or acute inflammatory changes are seen involving the bowel. Bladder: Unremarkable. No mass. Reproductive: Unremarkable as visualized. ABDOMEN and PELVIS: Intraperitoneal space: See above. Bones/joints: There are chronic bilateral pars defects at L5 with 3 mm grade 1 anterolisthesis of L5 on S1. No acute fracture or destructive bone lesion is seen. No dislocation. Soft tissues: Unremarkable. Vasculature: Unremarkable. No abdominal aortic aneurysm. Lymph nodes: Unremarkable. No enlarged lymph nodes. IMPRESSION: 1. The appendix is not visible. Bowel loops are nondilated. No pneumoperitoneum, free fluid, or acute inflammatory changes are seen involving the bowel. 2. The liver is enlarged measuring 23 cm craniocaudad. No focal liver mass lesion is seen. 3. There is a nonobstructive 3 mm calyceal calculus in the upper pole the right kidney. The kidneys are otherwise unremarkable. No hydronephrosis or ureterolithiasis is seen. Electronically signed by: Orlando Loaiza MD 10/01/24 20:27 PM Code Status & VTE Plan VTE Prophylaxis Plan VTE Prophylaxis will be ordered: Yes
[2024-10-01] MEDS ORDERED: NITROGLYCERIN SL 0.4 MG/TAB TAB SL PRN (22:47)
[2024-10-01] MEDS ORDERED: ONDANSETRON INJ 2 MG/ML 2 ML VIAL IV PRN (22:47)
[2024-10-01] MEDS ORDERED: POLYETHYLENE (MIRALAX) 17 GM PACK PO PRN (22:47)
[2024-10-01] MEDS: ENOXAPARIN INJ 40 MG/0.4 ML SYR SQ SCH (23:45)
[2024-10-01] MEDS: D5W AND 1/2NSS 1,000 ML IV SCH (23:45)
[2024-10-01] MEDS: METHOCARBAMOL 500 MG TABLET PO SCH (23:45)
[2024-10-02 03:24] LABS: Basophils # (auto) 0.04 K/uL (0.00-0.20); Basophils % (auto) 0.6 %; Eosinophils # (auto) 0.28 K/uL (0.00-0.50); Eosinophils % (auto) 3.9 %; Hematocrit (blood only) 37.2 % (37.0-47.0); Hemoglobin 12.3 g/dl (12.0-16.0); Immature Granulocytes # (auto) 0.02 K/uL (0.01-0.20); Immature Granulocytes % (auto) 0.3 %; Lymphocytes # (auto) 2.77 K/uL (1.20-3.40); Lymphocytes % (auto) 38.8 %; Mean Corpuscular Hemoglobin 27.7 pg (25.0-34.0); Mean Corpuscular Hgb Conc 33.1 g/dL (32.0-36.0); Mean Corpuscular Volume 83.8 fL (80.0-100.0); Mean Platelet Volume 9.6 fL (9.4-12.4); Monocytes # (auto) 0.62 K/uL (0.11-0.59); Monocytes % (auto) 8.7 %; Neutrophils % (auto) 47.7 %; Platelet Count 287 K/uL (130-400); RDW Coefficient of Variation 13.2 % (11.5-14.5); Red Blood Count 4.44 M/uL (4.20-5.40); White Blood Count 7.13 K/ul (4.8-10.8)
[2024-10-02 03:40] LABS: BUN Creatinine Ratio 19.1 (10-20); Calcium 9.5 mg/dl (8.6-10.3); Creatinine Clr Calc Pharmacy 115.7 ml/min; Potassium 3.8 mmol/L (3.5-5.1)
[2024-10-02 03:45] LABS: Troponin I High Sensitivity 3.2 pg/ml (0-14)
[2024-10-02] MEDS: HYDROmorphone INJ 0.5 MG/0.5 ML SYR IV PRN (03:59)
[2024-10-02] MEDS: ACETAMINOPHEN 325 MG TAB PO PRN (06:05)
[2024-10-02 07:09] LABS: Estimated Average Glucose 105 mg/dl; Hemoglobin A1C 5.3 % (4.5-5.6)
[2024-10-02] MEDS: lisinopril 10 MG TAB PO SCH (08:53)
[2024-10-02] MEDS: CEROVITE ADV FORMULA TAB PO SCH (08:53)
[2024-10-02] MEDS: DULoxetine HCL 20 MG CAP PO SCH (08:54)
[2024-10-02] MEDS ORDERED: NON-FORMULARY MEDICATION (Buprenorphine-Naloxone 8-2 mg film) SL SCH (09:00)
[2024-10-02] MEDS: DEXTROAMPHETAMINE/AMPHETAMINE IR 20 MG TAB PO SCH (09:58)
--- NOTE | 2024-10-02 11:38 | Hospitalist Progress Note ---
Date of Service October 02, 2024 Assessment & Plan (1) Neural foraminal stenosis of lumbosacral spine: (2) Bilateral lumbar radiculopathy: (3) UTI due to Klebsiella species: (4) Hypoglycemia: (5) Degenerative disc disease at L5-S1 level: (6) Opioid dependence on maintenance agonist therapy, no symptoms: (7) Pars defect of lumbar spine: Plan Patient with severely symptomatic foraminal stenosis and degenerative disc disease describing radicular symptoms Continued Robaxin 3 times daily Start gabapentin 300 mg 3 times daily Lidoderm patch to the lumbar spine Tylenol scheduled Buprenorphine as needed for pain control Patient is on chronic Suboxone maintenance therapy. Restart her home Suboxone dosing to prevent withdrawal Continue ceftriaxone for Klebsiella UTI, monitor sensitivities Monitor fingerstick glucose at meals Discontinue D5W, glucoses appear to have improved Therapies Orthopedic evaluation pending [facility] to [facility] Admission and Anticipated Discharge Date Admission Date: October 01, 2024 Subjective Patient describing severe lumbar pain and bilateral lower extremity lumbar radiculopathy and neuropathy. Physical Exam Physical Exam: Constitutional: Alert, anxious, restless HEENT: Mucous membranes moist. Lungs: Clear to auscultation, decreased, no wheezes rales or rhonchi CV: S1-S2, regular Abdomen: Soft, nontender, nondistended Extremities: No significant edema Neuro: Neuropathy lower extremity, moves all 4 extremities Musculoskeletal: Exquisite tenderness to the paravertebral musculature of the lumbar spine bilaterally Psych: Cooperative, normal mood Results & Data Results & Data Vital Signs (Past 12 Hours) Vital Signs Temp Pulse Pulse Resp BP BP Pulse Ox 10/02/24 11:25 36.6 C 83 18 146/89 H 94 10/02/24 07:44 36.5 C 81 20 151/90 H 96 10/02/24 07:33 99 H 10/02/24 06:20 36.5 C 110 H 18 181/95 H 96 10/02/24 06:00 109 H 20 181/95 H 10/02/24 06:00 98 H 16 177/101 H 94 10/02/24 05:42 84 16 10/02/24 03:35 93 H 23 96 10/02/24 02:51 85 19 150/93 H 97 10/01/24 23:59 36.9 C 84 19 131/100 99 10/01/24 23:48 Pulse Ox O2 Del Method O2 Del Method 10/02/24 11:25 10/02/24 07:44 10/02/24 07:33 10/02/24 06:20 Room Air 10/02/24 06:00 Room Air 10/02/24 06:00 Room Air 10/02/24 05:42 10/02/24 03:35 Room Air 10/02/24 02:51 Room Air 10/01/24 23:59 Room Air 10/01/24 23:48 99 Room Air Diagnostic Findings Reviewed imaging, laboratory and diagnostic studies. Pertinent findings as below. Reviewed MRI report, Spinal stenosis Urine culture growing Klebsiella Electrolytes stable Creatinine 0.68 CBC stable
[2024-10-02] MEDS: BUPRENORPHINE/NALOXONE 8/2 MG TAB SL SCH (12:09)
[2024-10-02] MEDS: buprenorphine HCL 2 MG SUBL SL PRN (12:14)
[2024-10-02] MEDS: LIDOCAINE 5% 1 PATCH TD SCH (12:48)
[2024-10-02] MEDS: ACETAMINOPHEN 500 MG TAB PO SCH (14:15)
[2024-10-02] MEDS: METHOCARBAMOL 500 MG TABLET PO SCH (14:18)
[2024-10-02] MEDS: GABAPENTIN 300 MG CAP PO SCH (14:18)
[2024-10-02] MEDS: DULoxetine HCL 60 MG CAP PO SCH (20:52)
[2024-10-02] MEDS: cefTRIAXone SODIUM 2,000 MG/50 ML BAG IV SCH (20:52)
--- OUTSIDE RECORDS SUMMARY | 2024-10-02 21:49 | External Medical Summary | Summary of Care ---
Author Name Unknown Organization [facility] Address [address] [place] [address] Phone [phone] Care Team Providers Care Tromper Name Role Phone Marylou Carrillo MD Primary Care Provid er Reason for Visit * Reason Onset Date Comments FYI 07/24/2024 Encounter Details Date Type Department Care Team (Late st Contact Info) Description 07/24/2024 Telephone Access Center, [place] [address] [facility] *DO NOT REMOVE THIS DEPARTMENT* [place] [address] Services, Scheduling [address] [place] [address] Allergies Active Allergy Reactions Criticality Noted Date Comments Adhesive Tape Hives,Itching,Rash 07/10/2011 Iodine Hives,Itching,Rash 07/10/2011 Topical iodine Tramadol Nausea/vomiting 06/03/2024 documented as of this encounter (statuses as of 07/25/2024) Medications Medication Sig Dispensed Refills Start Date End Date Status ondansetron ODT (ZOFRAN) 4 MG TBDPIndications:Naus ea Place 1 Tab on tongue every 8 hours as needed for Nausea. dissolve on tongue. 30 Tab 3 09/23/2018 Active Amphetamine-Dextroam phetamine 20 MG Oral Tablet (Adderall) 12/19/2023 Active Triamcinolone Acetonide 0.1 % External Cream (Aristocort)Indicati ons:Rash and nonspecific skin eruption Apply topically to affected area 2 times a day. Apply to hands 30 g 5 03/04/2024 Active Lisinopril 10 MG Oral Tablet (Prinivil)Indication s:HTN, goal below 140/90 Take 1 Tablet by mouth in the morning. 90 Tablet 3 03/04/2024 Active DULoxetine HCl 20 MG Oral Capsule Delayed Release Particles (Cymbalta)Indication s:Fibromyalgia,Perip heral polyneuropathy,Polya rthralgia,Neuropathy Take 1 Capsule by mouth in the morning and 1 Capsule before bedtime. Do not cut, crush or chew. 60 Capsule 5 03/06/2024 Active Methocarbamol 500 MG Oral Tablet (Robamol) Take 1 Tablet by mouth. 05/29/2024 Active documented as of this encounter (statuses as of 07/25/2024) Active Problems Problem Noted Date Diagnosed Date Iron deficiency anemia 01/11/2024 Raynaud's disease without gangrene 01/11/2024 Venous insufficiency 01/11/2024 Anxiety 01/11/2024 Clubbing of nails 01/11/2024 Neuropathy 08/01/2023 Overactive bladder 08/01/2023 Opioid dependence, uncomplicated 09/23/2018 Status post functional endoscopic sinus surgery 08/02/2017 Chronic ethmoidal sinusitis 07/23/2017 Dysphonia 05/22/2017 Jose Francisco's edema of vocal folds 05/22/2017 Deviated nasal septum 03/19/2017 Hypertrophy of both inferior nasal turbinates Tinnitus of right ear 03/19/2017 Anosmia 03/19/2017 Fibromyalgia 02/10/2015 Obesity, Class III, BMI 40-49.9 (morbid obesity) 08/13/2014 Asthma, mild persistent 01/14/2013 Gestational diabetes 07/05/2012 Peptic ulcer 01/03/2005 Overview: Peptic Ulcer Disease Gastrointestinal hemorrhage 01/03/2005 Overview: Hemorrhage of GI tract, NOS Esophageal reflux 01/03/2005 Overview: Gastroesophageal Reflux (GERD) Myalgia and myositis 05/19/2003 documented as of this encounter (statuses as of 07/25/2024) Resolved Problems Problem Noted Date Diagnosed Date Resolved Date Status post nasal surgery 08/02/2017 Tobacco use disorder 07/18/2012 021 Preeclampsia 07/05/2012 10/19/2021 documented as of this encounter (statuses as of 07/25/2024) Immunizations Name Administration Dates Next Due COVID-19 mRNA, LNP-s, No Pre serve, 2-Dose Series (Pfizer) 04/02/2021,03/12/2021 PPD 10/18/2017 Pneumococcal Polysaccharide PPV23 (Pneumovax) 06/20/2011(Deferred: Patient Refused) Seasonal Influenza, Trivalen t, (IIV3), with Preserv, (Fluzone) 11/27/2013,09/05/2012 TDAP, Age 7 and older, IM (Adacel) 06/20/2011(De nicad: Patient Refused) documented as of this encounter Social History Tobacco Use Types Packs/Day Years Used Date Smoking Tobacco: Former Cigarettes 0.3 15 0 01/11/2004 - 01/10/2019 Smokeless Tobacco: Never Alcohol Use Standard Drinks/Week Comments No 0 (1 standard drink = 0.6 oz pur e alcohol) PHQ-2 Answer Date Recorded PHQ Adult Total Score 11 01/16/2022 Utilities Answer Date Recorded Do you have trouble paying y our heating, water, or electric bill? (Adult - for ages 18 years and over) Not on file 04/29/2024 Is your family able to pay t he heat, water, or electric bill? (Household - for ages 0-17 years) Not on file 04/29/2024 Does your family have access to good internet? (Household - for ages 0-17 years) Not on file 04/29/2024 Social Connections Answer Date Recorded How often do you feel lonely or isolated from those around you? (Adult - for ages 18 years and over) Not on file 04/29/2024 Sex and Gender Information Value Date Recorded Sex Assigned at Female 07/31/2023 4:03 PM EDT Gender Identity Female 07/31/2023 4:03 PM EDT Sexual Orientation Not on file Job Start Date Occupation Industry Not on file Not on file Not on file documented as of this encounter Miscellaneous Notes * Telephone Encounter - Dawn Metcalf OSA - 07/25/2024 1:31 PM EDT Made On: Change Notes: Change Notes: No Show: 06/03/2024 12:00 PM 07/04/2024 9:22 AM 07/11/2024 9:17 AM 07/17/2024 1:53 PM By: By: By: By: TORRI WILSON CINDY J WALTER, CINDY J BURDGE, JONDA L Referral Information Per documentation, pt did not cancel her [facility] Interventional Pain appt. Cannot make an appt a No Show if it is a cancelled appt. * Telephone Encounter - Cinthia Palmer OSA - 07/24/2024 6:34 PM EDT Pt calling to dispute the recent letter she received because of her no show appointment that was marked for 07/17/2024. Pt states that she canceled her appointment well before the 24 hours that was required and she would like to speak to someone. Please call pt. * Telephone Encounter - Cinthia Palmer OSA - 07/24/2024 6:22 PM EDT documented in this encounter Plan of Treatment Upcoming Encounters Date Type Department Care Team (Latest Contact Info) Description 11/04/2024 8:00 AM EST Hospital Encounter ENDO [facility], Endoscopy Room [facility] [address] [place] [phone] Lisa Washington DO [address] [place] [id number] 11/04/2024 8:00 AM EST - 11/04/2024 9:00 AM EST Surgery ENDO [facility], Endoscopy Room [facility] [address] [place] [phone] Lisa Washington DO [address] [place] [address] COLONOSCOPY FLEXIBLE PROXIMAL DIAGNOSTIC 11/14/2024 11:40 AM EST Office Visit [facility] [address] [place] [address] Marylou Carrillo MD [address] [place] [address] Scheduled Procedures Name Priority Associated Diagnoses Date/Ti me COLONOSCOPY FLEXIBLE PROXIMA L DIAGNOSTIC Iron deficiency anemia 11/04/2024 8:00 AM EST ESOPHAGOGASTRODUODENOSCOPY ( EGD), FLEXIBLE, TRANSORAL, DIAGNOSTIC Iron deficiency anemia 11/04/2024 8:00 AM EST Health Maintenance Due Date Last Done Comments Pneumococcal Vaccine: Pediatrics (0 to 5 Years) and At-Risk Patients (6 to 64 Years) (1 of 2 - PCV) 1980 HIV Screening 1989 Hepatitis C Screening 1992 DTap/Tdap Vaccines (1 - Tdap) 1993 Hepatitis B Vaccine (1 of 3 - 19+ 3-dose series) 1993 HPV/Co-Test 2004 Mammogram 06/02/2016 06/02/2015 Cervical Cancer Screening 06/16/2016 Pap Smear 06/16/2016 06/16/2013 (Done elsewhere), 06/12/2012 (Done elsewhere) *SPIROMETRY ONCE FOR ASTHMA-ADULT 12/31/2016 Cologuard 2019 Fecal Occult Blood Test 2019 Sigmoidoscopy 2019 Depression Monitoring 01/16/2023 01/16/2022 Colonoscopy 01/31/2023 01/31/2013, 01/31/2013 Colorectal Cancer Screening 01/31/2023 Zoster Vaccines (1 of 2) 2024 Lipid Panel 05/01/2024 05/01/2019 COVID-19 Vaccine ( season) 2024 04/02/2021, 03/12/2021 Influenza Vaccine (FLU shot) (#1) 2024 11/27/2013, 09/05/2012 Diabetes Screening 01/10/2027 01/11/2024, 1 01/02/2023, 11/01/2023, Additional history exists HPV (Gardasil) Vaccine Aged Out No lo nger eligible based on patient's age to complete this topic MENINGOCOCCAL (MENACTRA/MENVEO) Aged Out No longer eligible based on patient's age to complete this topic documented as of this encounter Medical Devices Implanted Type Area Business Support Assistant Device Identifier Shelf Expiration Date Model / Serial / Lot Forehd End 3.0 Trpl [id number] - [id number] Implanted:Qty: 1 on 08/02/2018 by Magy Brand MD at [place] [facility] [place]: Head [employer] 08/23/2019 CFD-010-016 [id number] Forehd End 3.0 Trpl [id number] - [id number] Implanted:Qty: 1 on 08/02/2018 by Magy Brand MD at [place] [facility] [place] Right: Head [employer] 02/03/2020 CFD-010-016 [id number] documented as of this encounter Care Teams Tromper Relationship Specialty Start Date End Date Marylou Carrillo MD [address] [place] [address] PCP - General Family Medicine 02/28/24 documented as of this encounter
--- OUTSIDE RECORDS SUMMARY | 2024-10-02 21:49 | External Medical Summary | Summary of Care ---
Author Name Unknown Organization [facility] Address [address] [place] [address] Phone [phone] Care Team Providers Care Line Staker Name Role Phone Marylou Carrillo MD Primary Care Provid er Reason for Referral * Evaluate & Treat - Unlimited Visits (Within 30 days (routine)) - Authorized Specialty Diagnoses / Procedures Referred By Contact Referred To Contact GI NUTRITION/IM / Gastroenterology Diagnoses Obesity, Class III, BMI 40-49.9 (morbid obesity) ([facility]) Marylou Carrillo MD [facility] [place] [address] Referral ID Status Reason Start Date Expiration Date Visits Requested Visits Authorized [id number] Authorized Specialty Services Required 4 [phone] Question Answer Referral Priority Within 30 days (routine) Where should this appointment be scheduled? [facility] For what condition is the patient being seen? Obesity Is this referral for a GLP1 medication? No Comments THE PATIENT WILL NOT BE PRESCRIBED GLP-1 MEDICATIONS UNLESS: *Documentation of an unsuccessful trial of losing at least 5% of weight loss *Documentation the patient has had tried and failed two [2] non-GLP1 agonists (Phentermine and Wellbutrin/ Naltrexone) *Documentation of two [2] or more appointments discussing weight loss and lifestyle changes *Documentation of a blood pressure and weight within the EMR before initiation of the GLP-1 or non-GLP-1 medications REFERRING PROVIDER MUST ACKNOWLEDGE ALL OF THE CONDITIONS ABOVE ARE MET AND HAVE A BMI >35. IF THESE CONDITIONS ARE NOT MET THE PATIENT WILL NOT BE PRESCRIBED GLP- 1 PRESCRIPTIONS. Reason for Visit * Reason Onset Date Comments Referral 08/27/2024 Encounter Details Date Type Department Care Team (Late st Contact Info) Description 08/27/[address] [facility] [address] [place] [address] Marylou Carrillo MD [address] [place] [address] Referral Allergies Active Allergy Reactions Criticality Noted Date Comments Adhesive Tape Hives,Itching,Rash 07/10/2011 Iodine Hives,Itching,Rash 07/10/2011 Topical iodine Tramadol Nausea/vomiting 06/03/2024 documented as of this encounter (statuses as of 09/01/2024) Medications Medication Sig Dispensed Refills Start Date [...] as of this encounter (statuses as of 09/01/2024) Active Problems Problem Noted Date Diagnosed Date [...] as of this encounter (statuses as of 09/01/2024) Resolved Problems Problem Noted Date Diagnosed Date Resolved Date Status post nasal surgery 08/02/2017 Tobacco use disorder 07/18/2012 021 Preeclampsia 07/05/2012 10/19/2021 documented as of this encounter (statuses as of 09/01/2024) Immunizations Name Administration Dates Next Due COVID-19 mRNA, LNP-s, No Pre serve, 2-Dose Series (Graspr) 04/02/2021,03/12/2021 PPD 10/18/2017 Pneumococcal Polysaccharide PPV23 (Pneumovax) 06/20/2011(Deferred: Patient Refused) Seasonal Influenza Vac., MDV , IM, 0.5 mL (Fluzone) 11/27/2013,09/05/2012 TDAP, Age 7 and older, IM (Adacel) 06/20/2011(De ferred: Patient Refused) documented as of this encounter [...] encounter Miscellaneous Notes * Telephone Encounter - Natalya Bragg RN - 09/01/2024 2:03 PM EDT Provider to address: Referral placed for GI nutrition as requested. Reason for Call: No chief complaint on file. Contact: [employer] Contact Type: Referral(s) Placed Provider In-Basket: Yes Outcome: see above Face to face time spent with Patient (minutes): 0 Total Time including non face to face (minutes): 10 * Telephone Encounter - Amanda Parham OSA - 08/27/2024 6:11 PM EDT Has the patient been seen for this problem? (Y/N)?: Yes If No, an appt needs to be scheduled before a referral will be placed (exception: proceed with referral request if referral request is for a yearly routine appointment with speciality) Patient Name: Martina Saunders Patient Primary care provider: Marylou Carrillo MD Does this need to be an insurance referral (Y/N)?: N/A If Yes, does the insurance referral need to be placed into the [employer] system? Name of preferred specialist: [facility] Type of specialist: Public Affairs Manager Location of specialist: [facility] Phone #: [phone] Specialist's Fax #: N/A Reason for visit: Weight Gain Date of visit: N/A documented in this encounter Plan of Treatment Upcoming Encounters Date Type Department Care Team (Latest Contact Info) Description 11/04/2024 8:00 AM EST Hospital Encounter ENDO [facility], Endoscopy Room [facility] [address] [place] [phone] Lisa Washington DO [address] [place] [address] 11/04/2024 8:00 AM EST - 11/04/2024 9:00 AM EST Surgery ENDO [facility], Endoscopy Room [facility] [address] [place] [phone] Lisa Washington DO [address] [place] [address] COLONOSCOPY FLEXIBLE PROXIMAL DIAGNOSTIC 11/14/2024 11:40 AM EST [address] [address] Marylou Carrillo MD [address] [place] [address] Scheduled Procedures Name Priority Associated Diagnoses Date/Ti me COLONOSCOPY FLEXIBLE PROXIMA L DIAGNOSTIC Iron deficiency anemia 11/04/2024 8:00 AM EST ESOPHAGOGASTRODUODENOSCOPY ( EGD), FLEXIBLE, TRANSORAL, DIAGNOSTIC Iron deficiency anemia 11/04/2024 8:00 AM EST Scheduled Referrals Name Type Priority Associated Diagnoses Orde r Schedule GI NUTRITION REFERRAL OP Referral Within 30 days (routine) Obesity, Class III, BMI 40-49.9 (morbid obesity) (HCC) Ordered: 09/01/2024 Health Maintenance Due Date Last Done Comments [...] Lipid Panel 05/01/2024 05/01/2019 COVID-19 Vaccine ( - 2023- season) 2024 04/02/2021, 03/12/2021 Influenza Vaccine (FLU [...] this encounter Medical Devices Implanted Type Area Client Server Programmer Device Identifier Shelf Expiration Date Model / Serial / Lot Forehd End 3.0 Trpl [id number] - [id number] Implanted:Qty: 1 on 08/02/2018 by Magy Brand MD at OR [facility] [place] Left: Head [employer] 08/23/2019 CFD-010-016 7 / / [id number] Forehd End 3.0 Trpl [id number] - [id number] Implanted:Qty: 1 on 08/02/2018 by Magy Brand MD at OR [facility] [place] Right: Head [employer] 02/03/2020 CFD-010-016 [id number] / / [id number] documented as of this encounter Visit Diagnoses Diagnosis Obesity, Class III, BMI 40-49.9 (morbid obesity) (HCC)- Primary Morbid obesity Iron deficiency anemia Iron deficiency anemia, unspecified documented in this encounter Care Teams Line Staker Relationship Specialty Start Date End Date Marylou Carrillo MD [address] [place] [address] PCP - General Family Medicine 02/28/24 documented as of this encounter
--- OUTSIDE RECORDS SUMMARY | 2024-10-02 21:49 | External Medical Summary | Summary of Care ---
Author Name Unknown Organization [facility] Address [address] [facility] [address] Phone [phone] Care Team Providers Care Nurse Advocate Name Role Phone Marylou Carrillo MD Primary Care Provid er Reason for Visit * Reason Onset Date Comments Referral 06/07/2024 [facility] Pain Encounter Details Date Type Department Care Team (Late st Contact Info) Description 06/07/2024 Telephone [facility], [facility] Bad[facility] [address] [place] [address] [place] [address] Pharmacist2, [facility] [address] [place] [address] Referral ([facility] Pain) Allergies Active Allergy Reactions Criticality Noted Date Comments Adhesive Tape Hives,Itching,Rash 07/10/2011 Iodine Hives,Itching,Rash 07/10/2011 Topical iodine Tramadol Nausea/vomiting 06/03/2024 documented as of this encounter (statuses as of 06/26/2024) Medications Medication Sig Dispensed Refills Start Date [...] as of this encounter (statuses as of 06/26/2024) Active Problems Problem Noted Date Diagnosed Date [...] as of this encounter (statuses as of 06/26/2024) Resolved Problems Problem Noted Date Diagnosed Date Resolved Date Status post nasal surgery 08/02/2017 Tobacco use disorder 07/18/2012 021 Preeclampsia 07/05/2012 10/19/2021 documented as of this encounter (statuses as of 06/26/2024) Immunizations Name Administration Dates Next Due COVID-19 mRNA, LNP-s, No Pre serve, 2-Dose Series (Pfizer) 04/02/2021,03/12/2021 PPD 10/18/2017 Pneumococcal Polysaccharide PPV23 (Pneumovax) 06/20/2011(Deferred: Patient Refused) Seasonal Influenza, Split, I IV3, With Preserve, Inj 11/27/2013,09/05/2012 TDAP, Age 7 and older, IM [...] encounter Miscellaneous Notes * Telephone Encounter - Juan Francisco [facility] - 06/26/2024 12:22 PM EDT Agree with plan as documented. Juan Francisco [facility] Clinical Pharmacist 06/26/2024, 12:22 PM * Telephone Encounter - Naheed Padilla PHARM Tech - 06/26/2024 11:24 AM EDT Martina has not contacted the clinic to schedule/reschedule an appointment for pain management per referral from PCP despite multiple attempts to do so by our team. Patient is discharged from [facility] services at this time. Thank you, Naheed Padilla Outpatient Receptionist [facility] ([facility]) [phone] 06/26/2024,11:24 AM * Telephone Encounter - Juan Francisco [facility] - 06/09/2024 8:26 AM EDT Referral received and reviewed. Reason for referral: Pain Please Schedule patient. Referring provider: Marylou Carrillo MD Initial appt length: 60 min Appointment type indicated: Inperson Required Preferred Clinic for Appointment: [facility] 06/09/2024, 8:26 AM * Telephone Encounter - Francie Tobar CPhT - 06/07/2024 8:36 AM EDT Pharmacist Medication Therapy Management: Minimum frequency patient should be seen in person for medication management: as appropriate per clinical condition and patient status By my signature, I understand that my patient Martina Saunders will have her medication therapy managed by the [facility] Medication Therapy Disease Management Clinic ([facility]) per established policies, procedures, and protocols. I also certify that this referral may serve as an initiation of service forthe management of drug therapy in the above noted patient. [facility] providers will be responsible for scheduling patient visits, obtaining appropriate laboratory studies, and adjusting medication management therapy per patient's need, in addition to those roles spelled out in the clinic policy, procedures, and drug management protocols. I understand that the service provided by the [facility] Clinic is voluntary and have informed patient that they can refuse the service at their discretion. I am aware that the [facility] Clinic will provide me with a copy of the patient encounter via my [employer]. I authorize the [facility] Clinic to carry out these activities on my behalf. I consider this program to be a necessary part of the patient's medical care. Marylou Carrillo MD Order Specific Questions Referral Priority Within 30 days (routine) Where should this appointment be scheduled? [facility] Referring Provider Role: Primary Care Reason for Referral: Pain Pain Diagnosis: Back pain Pain Treatment Options: Non-opioids only Pain Treatment Goal: Med Optimization documented in this encounter Plan of Treatment Upcoming Encounters Date Type Department Care Team (Latest Contact Info) Description 07/17/2024 12:00 PM EDT Office Visit Interventional Pain Center, [facility] [address] [place] [address] Eladio Cortes CRNP [address] [place] [address] 11/04/2024 8:00 AM EST Hospital Encounter ENDO [facility], Endoscopy Room [facility] [address] [place] [phone] Lisa Washington DO [address] [place] [address] 11/04/2024 8:00 AM EST - 11/04/2024 9:00 AM EST Surgery ENDO [facility], Endoscopy Room [facility] [address] [phone] Lisa Washington DO [address] [place] [address] COLONOSCOPY FLEXIBLE PROXIMAL DIAGNOSTIC 11/14/2024 11:40 AM EST [facility] [address] [facility] [address] Marylou Carrillo MD [address] [place] [address] Scheduled Procedures Name Priority Associated Diagnoses Date/Ti [...] HIV Screening 1989 Hepatitis C Screening 1992 DTaP,Tdap,and Td Vaccines (1 - Tdap) 1993 Hepatitis B Vaccine (1 of 3 - 19+ 3-dose series) 1993 HPV/Co-Test 2004 Mammogram 06/02/2016 06/02/2015 Cervical Cancer Screening 06/16/2016 Pap Smear 06/16/2016 06/16/2013 (Done elsewhere), 06/12/2012 (Done elsewhere) *SPIROMETRY ONCE FOR ASTHMA-ADULT 12/31/2016 Cologuard 2019 Fecal Occult Blood Test 2019 Sigmoidoscopy 2019 Depression Monitoring 01/16/2023 01/16/2022 Colonoscopy 01/31/2023 01/31/2013, 01/31/2013 Colorectal Cancer Screening 01/31/2023 COVID-19 Vaccine (3 - 2022- season) 2023 04/02/2021, 03/12/2021 Zoster Vaccines (1 of 2) 2024 Lipid Panel 05/01/2024 05/01/2019 Influenza Vaccine (FLU shot) (#1) 2024 11/27/2013, 09/05/2012 Diabetes Screening 01/10/2027 01/11/2024, 1 01/02/2023, 11/01/2023, Additional history exists HPV (Gardasil) Vaccine Aged Out No lo nger eligible based on patient's age to complete this topic MENINGOCOCCAL (MENACTRA/MENVEO) Aged Out No longer eligible based on patient's age to complete this topic documented as of this encounter Medical Devices Implanted Type Area Access Registrar Device Identifier Shelf Expiration Date Model / Serial / Lot Forehd End 3.0 Trpl [id number] - [id number] Implanted:Qty: 1 on 08/02/2018 by Magy Brand MD [place] [facility] [place] [employer] 08/23/2019 CFD-010-016 7 / / [id number] Forehd End 3.0 Trpl [id number] - [id number] Implanted:Qty: 1 on 08/02/2018 by Magy Brand MD [place] [facility] [place] Head [employer] 02/03/2020 CFD-010-016 7 / / [id number] documented as of this encounter Care Teams Nurse Advocate Relationship Specialty Start Date End Date Marylou Carrillo MD [address] [place] [address] PCP - General Family Medicine 02/28/24 documented as of this encounter
--- OUTSIDE RECORDS SUMMARY | 2024-10-02 21:49 | External Medical Summary | Summary of Care ---
Author Name Unknown Organization [facility] Address [address] [address] Phone [phone] Care Team Providers Care Health Care Facilities Inspector Name Role Phone Marylou Carrillo MD Primary Care Provid er Reason for Visit * Reason Onset Date Comments Referral 06/07/2024 [facility] Pain Encounter Details Date Type Department Care Team (Late st Contact Info) Description 06/07/2024 Telephone [facility], Frederick Badillo [address] [place] [address] [place] [id number] Pharmacist2, [facility] [address] [place] [address] Referral ([facility] Pain) Allergies Active Allergy Reactions Criticality Noted [...] encounter Miscellaneous Notes * Telephone Encounter - Naheed Padilla PHARM Tech - 06/26/2024 11:24 AM EDT Martina has not contacted the clinic to schedule/reschedule an appointment for pain management per referral from PCP despite multiple attempts to do so by our team. Patient is discharged from [facility] services at this time. Thank you, Naheed Padilla Aquarium Tank Attendant [facility] ([facility]) [phone] 06/26/2024,11:24 AM * Telephone Encounter - Juan Francisco Cannon RP - 06/09/2024 8:26 AM EDT Referral received and reviewed. Reason for referral: Pain Please Schedule patient. Referring provider: Marylou Carrillo MD Initial appt length: 60 min Appointment type indicated: Inperson Required Preferred Clinic for Appointment: [facility] Juan Francisco Cannon RP 06/09/2024, 8:26 AM * Telephone Encounter - Francie Tobar CPhT - 06/07/2024 8:36 AM EDT Pharmacist Medication Therapy Management: Minimum frequency patient should be seen in person for medication management: as appropriate per clinical condition and patient status By my signature, I understand that my patient Martina Saunders will have her medication therapy managed by the [facility] Medication Therapy Disease Management [facility] ([facility]) per established policies, procedures, and protocols. I also certify that this referral may serve as an initiation of service forthe management of drug therapy in the above noted patient. [facility] providers will be responsible for scheduling patient visits, obtaining appropriate laboratory studies, and adjusting medication management therapy per patient's need, in addition to those roles spelled out in the clinic policy, procedures, and drug management protocols. I understand that the service provided by the [facility] is voluntary and have informed patient that they can refuse the service at their discretion. I am aware that the [facility] Clinic will provide me with a copy of the patient encounter via my [employer]. I authorize the [facility] to carry out these activities on my behalf. I consider this program to be a necessary part of the patient's medical care. Marylou Carrillo MD Order Specific Questions Referral Priority Within 30 days (routine) Where should this appointment be scheduled? [facility] Referring Provider Role: Primary Care Reason for Referral: Pain Pain Diagnosis: Back pain Pain Treatment Options: Non-opioids only Pain Treatment Goal: Med Optimization documented in this encounter Plan of Treatment Upcoming Encounters Date Type Department Care Team (Latest Contact Info) Description 07/17/2024 12:00 PM EDT Office Visit Interventional Pain Center, [facility] [address] [place] [address] Eladio Cortes CRNP [address] [place] [address] 11/04/2024 8:00 AM EST Hospital Encounter ENDO OSS, Endoscopy Room [facility] [address] [place] [phone] Lisa Washington DO [address] [place] [address] 11/04/2024 8:00 AM EST - 11/04/2024 9:00 AM EST Surgery ENDO O[facility], Endoscopy Room [facility] [address] [place] [phone] Lisa Washington DO [address] [place] [address] COLONOSCOPY FLEXIBLE PROXIMAL DIAGNOSTIC 11/14/2024 11:40 AM EST Office Visit [address], [place] [address] Marylou Carrillo MD [address] [facility] [place] [phone] Scheduled Procedures Name Priority Associated Diagnoses Date/Ti [...] Cancer Screening 01/31/2023 COVID-19 Vaccine (3 - season) 2023 04/02/2021, 03/12/2021 Zoster Vaccines (1 [...] this encounter Medical Devices Implanted Type Area Steamer Tender Device Identifier Shelf Expiration Date Model / Serial / Lot Forehd End 3.0 Trpl [id number] - [id number] Implanted:Qty: 1 on 08/02/2018 by Magy Brand MD at OR [facility] Left: Head [employer] 08/23/2019 CFD-010-016 7 / / [id number] Forehd End 3.0 Trpl [id number] - [id number] Implanted:Qty: 1 on 08/02/2018 by Magy Brand MD at OR [facility] Right: Head [employer] 02/03/2020 CFD-010-016 [id number] / / [id number] documented as of this encounter Care Teams Health Care Facilities Inspector Relationship Specialty Start Date End Date Marylou Carrillo MD [address] [place] [address] PCP - General Family Medicine 02/28/24 documented as of this encounter
--- OUTSIDE RECORDS SUMMARY | 2024-10-02 21:50 | External Medical Summary ---
Author Name Unknown Address Unknown Organization K01:[facility] [address] [place] [address] Laboratory Report Ordering Provider Test Date Status LAVON BRANHAM 06/03/2024 12:10:07 Final Observation Date Value Abnormality Reference (Units ) Status WBC, Total 06/03/2024 12:10:07 7.14 4.00-10.80 (K/uL) Final RBC 06/03/2024 12:10:07 5.12 3.85-5.15 (M/uL) Final Hemoglobin 06/03/2024 12:10:07 13.7 12.0-15.3 (g/dL) Final HCT 06/03/2024 12:10:07 44.4 36.0-45.2 (%) Final MCV 06/03/2024 12:10:07 86.7 81.5-97.5 (fL) Final MCH 06/03/2024 12:10:07 26.8 27.0-34.0 (pg) Final MCHC 06/03/2024 12:10:07 30.9 32.0-36.0 (g/dL) Final RDW 06/03/2024 12:10:07 15.7 11.5-15.5 (%) Final Platelets 06/03/2024 12:10:07 379 140-400 (K/uL) Final MPV 06/03/2024 12:10:07 10.6 6.6-11.1 (fL) Final Nucleated erythrocytes/100 leukocytes [Ratio] in Blood by Automated count 06/03/2024 12:10:07 0 <=0 (/100 WBCs) Final Performing Location [facility] [place] [address] [place] [address]
--- OUTSIDE RECORDS SUMMARY | 2024-10-02 21:50 | External Medical Summary | Summary of Care ---
Author Name Unknown Organization [facility] Address [address] [place] [address] Phone [phone] Care Team Providers Care Biomedical Engineering Director Name Role Phone Marylou Carrillo MD Primary Care Provid er Reason for Visit * Reason Comments Outpatient Testing Encounter Details Date Type Department Care Team (Late st Contact Info) Description 06/03/2024 12:20 PM EDT Laboratory Laboratory, [place] [address] [place] [address] [facility] [address] [place] [address] 140 Proof Other*[id number]; Iron deficiency anemia, unspecified iron deficiency anemia type; Raynaud's disease without gangrene Allergies Active Allergy Reactions Criticality Noted Date Comments Adhesive Tape Hives,Itching,Rash 07/10/2011 Iodine Hives,Itching,Rash 07/10/2011 Topical iodine documented as of this encounter (statuses as of 06/03/2024) Medications Medication Sig Dispensed Refills Start Date [...] as of this encounter (statuses as of 06/03/2024) Active Problems Problem Noted Date Diagnosed Date [...] as of this encounter (statuses as of 06/03/2024) Resolved Problems Problem Noted Date Diagnosed Date Resolved Date Status post nasal surgery 08/02/2017 Tobacco use disorder 07/18/2012 021 Preeclampsia 07/05/2012 10/19/2021 documented as of this encounter (statuses as of 06/03/2024) Immunizations Name Administration Dates Next Due COVID-19 [...] on file documented as of this encounter Plan of Treatment Upcoming Encounters Date Type Department Care Team (Latest Contact Info) Description 06/16/2024 9:30 AM EDT Office Visit Hematology/Oncology [facility] [place] [address] [facility] [place] [address] Jeaneth Blackburn CRNP [address] [facility] [address] 07/17/2024 12:00 PM EDT Office Visit [facility] Center, [facility] [address] [facility] [address] Eladio Cortes CRNP [address] [facility] [address] 11/04/2024 8:00 AM EST Hospital Encounter ENDO [facility], Endoscopy Room [facility] [address] [place] [phone] Lisa Washington, [address] [place] [phone] 11/04/2024 8:00 AM EST - 11/04/2024 9:00 AM EST Surgery ENDO [facility], Endoscopy Room [facility] [address] [place] [phone] Lisa Washington, [address] [place] [address] COLONOSCOPY FLEXIBLE PROXIMAL DIAGNOSTIC 11/14/2024 11:40 AM EST Office Visit [facility] [address] [facility], [place] [phone] Marylou Carrillo MD [address] [place] [address] Pending Results Name Type Priority Associated Diagnoses Date /Time MYCODE SUBSEQUENT ADULT Lab Routine MyCode Research Other*[id number] 06/03/2024 12:10 PM EDT CBC WITH WBC DIFFERENTIAL Lab STAT Iron deficiency anemia, unspecified iron deficiency anemia type 06/03/2024 12:10 PM EDT IRON SCREEN, INCLUDING TIBC Lab STAT Iron deficiency anemia, unspecified iron deficiency anemia type 06/03/2024 12:10 PM EDT FERRITIN Lab STAT Iron deficiency anemia, unspecified iron deficiency anemia type 06/03/2024 12:10 PM EDT COMPLEMENT C4 Lab Routine Raynaud's disease without gangrene 06/03/2024 12:10 PM EDT COMPLEMENT C3 Lab Routine Raynaud's disease without gangrene 06/03/2024 12:10 PM EDT PROTEIN/ CREATININE RATIO, URINE Lab Routine Raynaud's disease without gangrene 06/03/2024 12:10 PM EDT SERUM PROTEIN ELECTROPHORESIS REFLEX PROFILE Lab Routine Raynaud's disease without gangrene 06/03/2024 12:10 PM EDT CYCLIC CITRULLINATED PEPTIDE IGG ANTIBODY Lab Routine Raynaud's disease without gangrene 06/03/2024 12:10 PM EDT ANCA REFLEX PANEL Lab Routine Raynaud's disease without gangrene 06/03/2024 12:10 PM EDT SCL 70 ANTIBODY Lab Routine Raynaud's disease without gangrene 06/03/2024 12:10 PM EDT MYCODE SST1 Lab Routine MyCode Research Other*[id number] 06/03/2024 12:10 PM EDT MYCODE SST2 Lab Routine MyCode Research Other*[id number] 06/03/2024 12:10 PM EDT CBC Lab STAT Iron deficiency anemia, unspecified iron deficiency anemia type 06/03/2024 12:10 PM EDT DIFFERENTIAL, AUTOMATED Lab STAT Iron deficiency anemia, unspecified iron deficiency anemia type 06/03/2024 12:10 PM EDT ANCA, IFA Lab Routine Raynaud's disease without gangrene 06/03/2024 12:10 PM EDT Scheduled Procedures Name Priority Associated Diagnoses Date/Ti [...] 01/31/2013 Colorectal Cancer Screening 01/31/2023 COVID-19 Vaccine ( season) 2023 04/02/2021, 03/12/2021 Zoster Vaccines (1 [...] this encounter Medical Devices Implanted Type Area Family Court Registrar Device Identifier Shelf Expiration Date Model / Serial / Lot Forehd End 3.0 Trpl [id number] - [id number] Implanted:Qty: 1 on 08/02/2018 by Magy Brand MD at OR [facility] Left: Head [employer] 08/23/2019 CFD-010-016 [id number] Forehd End 3.0 Trpl [id number] - [id number] Implanted:Qty: 1 on 08/02/2018 by Magy Brand MD at OR [facility] Right: Head [employer] 02/03/2020 CFD-010-016 [id number] documented as of this encounter Visit Diagnoses Diagnosis MyCode Research Other*[id number] Iron deficiency anemia, unspecified iron deficiency anemia type Raynaud's disease without gangrene Iron deficiency anemia Iron deficiency anemia, unspecified documented in this encounter Care Teams Biomedical Engineering Director Relationship Specialty Start Date End Date Marylou Carrillo MD [address] [place] [id number] PCP - General Family Medicine 02/28/24 documented as of this encounter
--- OUTSIDE RECORDS SUMMARY | 2024-10-02 21:50 | External Medical Summary | Summary of Care ---
Author Name Unknown Organization [facility] Address [address] [place] [address] Phone [phone] Care Team Providers Care Icer Air Conditioning Name Role Phone Marylou Carrillo MD Primary Care Provid er Reason for Referral * Evaluate & Treat - Unlimited Visits (Within 30 days (routine)) - Authorized Specialty Diagnoses / Procedures Referred By Collin osborne Referred To Contact Pharmacist / Pharmacy Diagnoses Pain in both thighs Chronic midline low back pain with bilateral sciatica Peripheral polyneuropathy Polyarthralgia Neuropathy Marylou Carrillo MD [address] [place] [address] Referral ID Status Reason Start Date Expiration Date Visits Requested Visits Authorized [id number] Authorized Specialty Services Required 06/03/2024 11/30/2024 99 99 Question Answer Referral Priority Within 30 days (routine) Where should this appointment be scheduled? [facility] Referring Provider Role: Primary Care Reason for Referral: Pain Pain Diagnosis: Back pain Pain Treatment Options: Non-opioids only Pain Treatment Goal: Med Optimization Comments Pharmacist Medication Therapy Management: Minimum frequency patient should be seen in person for medication management: as appropriate per clinical condition and patient status By my signature, I understand that my patient Martina Saunders will have her medication therapy managed by the [facility] Medication Therapy Disease [facility] ([facility]) per established policies, procedures, and protocols. I also certify that this referral may serve as an initiation of service for the management of drug therapy in the above noted patient. [facility] providers will be responsible for scheduling patient visits, obtaining appropriate laboratory studies, and adjusting medication management therapy per patient's need, in addition to those roles spelled out in the clinic policy, procedures, and drug management protocols. I understand that the service provided by the [facility] is voluntary and have informed patient that they can refuse the service at their discretion. I am aware that the [facility] will provide me with a copy of the patient encounter via my [employer]. I authorize the [facility] to carry out these activities on my behalf. I consider this program to be a necessary part of the patient's medical care. Marylou Carrillo MD * Evaluate & Treat - Unlimited Visits (Within 30 days (routine)) - Authorized Specialty Diagnoses / Procedures Referred By Collin osborne Referred To Contact Pain Management / Pain Medicine Diagnoses Pain in both thighs Chronic midline low back pain with bilateral sciatica Marylou Carrillo MD [address] [place] [id number] Referral ID Status Reason Start Date Expiration Date Visits Requested Visits Authorized [id number] Authorized Specialty Services Required 06/03/2024 999 999 Question Answer Referral Priority Within 30 days (routine) Where should this appointment be scheduled? [facility] Reason for referral? Interventional Pain Management - (Injection) What condition is the patient being referred for? Lumbar Radiculopathy What is the preferred location to have this test performed? [facility]ар[facility] Batista II Comments Patient Name: Martnia Saunders Date of : 1975 Department Phone Number: MRI or CT (if unable to have a MRI) is recommended if any of the following apply: 1. Patient has neck or back pain with radiation to extremities. A previous MRI will be accepted if symptoms unchanged since prior MRI. 2. Spinal surgery since last MRI. If yes, order a MRI with and without contrast. 3. Hx or ongoing cancer treatment. Patient will need spine x-ray (Ap/Lat) for axial neck or back pain if not done previously. Fax No. [facility] [phone] or contact front office clerk [phone] Fax No. [facility] [phone] or contact front office clerk [phone] [facility] [phone] or contact front office clerk [phone] Reason for Visit * Reason Comments Acute Has a pain and would like to see about getting a referral for having her nerve cut or removed; pain in her L shoulder and has tried the tramodol and alcohol to help with symptoms and is having so much pain and would like to have lab work done today Toenail issues as well, seem to have blood underneath themToenails are falling off as well Encounter Details Date Type Department Care Team (Late st Contact Info) Description 06/03/2024 11:20 AM EDT Office Visit [facility] [address] [place] [address] Marylou Carrillo MD [address] [place] [address] Pain in both thighs*; Chronic midline low back pain with bilateral sciatica; Fibromyalgia; Peripheral polyneuropathy; Polyarthralgia; Neuropathy Allergies Active Allergy Reactions Criticality Noted Date [...] Take 1 Tablet by mouth. 05/29/2024 Active Hospital, Clinic, or Other Facility Administered Medication Ordered Dose Route Frequency Start Date End Date Status keTORolac (Toradol) 30 MG/ML inj 30 mgIndications:Pain in both thighs,Chronic midline low back pain with bilateral sciatica,Polyarthralgia 30 mg IM ONCE 06/03/2024 06/03/2024 E nded documented as of this encounter (statuses as [...] Age 7 and older, IM (Adacel) 06/20/2011(De jud: Patient Refused) documented as of this encounter Social History Tobacco Use Types Packs/Day Years Used Date Smoking Tobacco: Former Cigarettes 0.3 15 0 01/11/2004 - 01/10/2019 Smokeless Tobacco: Never Tobacco Cessation:Counseling Given: Not Answered Alcohol Use Standard Drinks/Week Comments No 0 [...] on file documented as of this encounter Last Filed Vital Signs Vital Sign Reading Time Taken Comments Blood Pressure 120/74 06/03/2024 11:13 AM EDT Pulse 104 06/03/2024 11:13 AM EDT Temperature 36.9 C (98.5 F) 06/03/2024 11:13 AM E DT Respiratory Rate 17 06/03/2024 11:13 AM EDT Oxygen Saturation 97% 06/03/2024 11:13 AM EDT Inhaled Oxygen Concentration - - Weight 92.7 kg (204 lb 4.8 oz) 06/03/2024 11:13 AM EDT Height 158.8 cm (5' 2.5") 06/03/2024 11:13 AM ED T Body Mass Index 36.77 06/03/2024 11:13 AM EDT documented in this encounter Progress Notes * Manju Huitron LPN - 06/03/2024 11:55 AM EDT Pre-Administration Time Out Procedure Performed: Yes Patient Identified (Ask Name/Date of ): Yes Does the patient have a fever greater than 101 degrees today? No Patient allergic to latex? No Has the patient ever fainted after receiving an injection? No VFC Stock: No Injection(s) verified: Yes, Injection Name: Toradol Verified Side and Site: Yes Verified Shot(s) with Parent(s)/Patient: Yes * Marylou Carrillo MD - 06/03/2024 11:24 AM EDT ASSESSMENT / PLAN: Martina Saunders is a 49 year old female with PMHx ADD / PUD / depression / HTN - here for recheck Mood / paresthesias / fibromyalgia Improving on cymbalta - 40mg daily Tramadol caused GI upset Medical marijuana helps with the pain but finds that it is over sedating Has been on suboxone historically but doesn't want to do that again. L shoulder and Bilateral lower extremity pain Chronic She is agreeable to pain interventional referral She is agreeable to MTM pain med referral Toradol today Other conditions: Iron def anemia Improving on vitron C Follows with Heme Will complete colonoscopy and EGD as recommended Postmenopausal / h/o fibroids With perimenopausal bleeding Knows to schedule US Postmenopausal Screenings/anticipatory guidance reviewed include if applicable nutrition, family planning/contraception, physical activity, healthy weight, injury prevention, misuse of tobacco, alcohol and drugs, sexual behavior and STDs, dental health, mental health, immunizations, age appropriate screenings: Next colon ca screening - DUE - being scheduled Next cervical ca screening - pap DUE - she will schedule return visit Annual mammograms DUE - order placed - Follow Up: Return for Labs Today. | For: Labs Today | Check-out note: Please cancel August appt w me -- push to November Pain in both thighs (Primary) - PAIN MEDICINE REFERRAL OP - keTORolac (Toradol) 30 MG/ML inj 30 mg - PHARMACIST MEDS THERAPY MGMT REFERRAL OP Chronic midline low back pain with bilateral sciatica - PAIN MEDICINE REFERRAL OP - keTORolac (Toradol) 30 MG/ML inj 30 mg - PHARMACIST MEDS THERAPY MGMT REFERRAL OP Fibromyalgia Peripheral polyneuropathy - PHARMACIST MEDS THERAPY MGMT REFERRAL OP Polyarthralgia - keTORolac (Toradol) 30 MG/ML inj 30 mg - PHARMACIST MEDS THERAPY MGMT REFERRAL OP Neuropathy - PHARMACIST MEDS THERAPY MGMT REFERRAL OP Follow Up: Return for Labs Today. | For: Labs Today | Check-out note: Please cancel August appt w me -- push to November If needed, prefers contact by: Ok to leave message on phone: SUBJECTIVE: Nursing Notes: Manju Huitron LPN 06/03/24 1123 Signed The patient has been properly identified by confirmation of name and date of . Chief Complaint Patient presents with Acute Has a pain and would like to see about getting a referral for having her nerve cut or removed; painin her L shoulder and has tried the tramodol and alcohol to help with symptoms and is having so much pain and would like to have lab work done today Toenail issues as well, seem to have blood underneath them Toenails are falling off as well HPI: Martina Saunders is a 49 year old female. Here for recheck. She is interested in completing her labs today. L shoulder and Bilateral lower extremity pain Chronic L shoulder located in posterior aspect of triceps, axillary region - started after falling down a flight of stairs 2003 - stabbing / burning / throbbing (crushed 6 vertebrae in thoracic spine at the time) - menthol helps some Lower back pain Thigh pain that radiates down calf and to the foot - burning / throbbing / electric shock going down the leg R > L B/l Feet - feels as if there is a ball under her feet Seen by Rheum via Telemed 03/06/24 - they ordered a large amount of labs and imaging - she has yet to complete these. Seen by Heme 02/29/24 - plan for EGD and colonoscopy. Iron def improving on oral therapy Reviewed sources 1- Patient Active Problem List Diagnosis Myalgia and myositis Peptic ulcer Gastrointestinal hemorrhage Esophageal reflux Gestational diabetes Asthma, mild persistent Obesity, Class III, BMI 40-49.9 (morbid obesity) (HCC) Fibromyalgia Deviated nasal septum Hypertrophy of both inferior nasal turbinates Tinnitus of right ear Anosmia Dysphonia Jose Francisco's edema of vocal folds Chronic ethmoidal sinusitis Status post functional endoscopic sinus surgery Opioid dependence, uncomplicated (HCC) Neuropathy Overactive bladder Iron deficiency anemia Raynaud's disease without gangrene Venous insufficiency Anxiety Clubbing of nails Current Outpatient Medications Medication Sig Dispense Refill ondansetron ODT (ZOFRAN) [address] 1 Tab on tongue every 8 hours as needed for Nausea. dissolve on tongue. 30 Tab 3 Amphetamine-Dextroamphetamine 20 MG Oral Tablet (Adderall) Triamcinolone Acetonide 0.1 % External Cream (Aristocort) Apply topically to affected area 2 times a day. Apply to hands 30 g 5 Lisinopril 10 MG Oral Tablet (Prinivil) Take 1 Tablet by mouth in the morning. 90 Tablet 3 DULoxetine HCl 20 MG Oral Capsule Delayed Release Particles (Cymbalta) Take 1 Capsule by mouth in the morning and 1 Capsule before bedtime. Do not cut, crush or chew. 60 Capsule 5 Methocarbamol 500 MG Oral Tablet (Robamol) Take 1 Tablet by mouth. No current facility-administered medications for this visit. OBJECTIVE: BP 120/74 | Pulse 104 | Temp 36.9 C (98.5 F) | Resp 17 | Ht 1.588 m (5' 2.5") | Wt 92.7 kg (204lb 4.8 oz) | SpO2 97% | BMI 36.77 kg/m | BSA 2.02 m Vitals reviewed and is normotensive / afebrile / and not tachycardic General: No acute distress. Neuro: Alert Pleasant & interactive. Respiratory: Good inspiratory effort, no labored breathing. HEENT: Conjunctivae appear clear. No swelling noted face or lips. Skin: No rash visible on exposed skin areas, normal coloration & appears dry. Psych: Normal affect. Fluent speech. Marylou Carrillo MD [address] [address] There are no Patient Instructions on file for this visit. documented in this encounter Nursing Notes * Manju Huitron LPN - 06/03/2024 11:22 AM EDT The patient has been properly identified by confirmation of name and date of . Chief Complaint Patient presents with Acute Has a pain and would like to see about getting a referral for having her nerve cut or removed; painin her L shoulder and has tried the tramodol and alcohol to help with symptoms and is having so much pain and would like to have lab work done today Toenail issues as well, seem to have blood underneath them Toenails are falling off as well documented in this encounter Plan of Treatment Upcoming Encounters Date Type Department Care Team (Latest Contact Info) Description 06/16/2024 9:30 AM EDT Office Visit Hematology/Oncology [facility] [address] [place] [address] Jeaneth Blackburn CRNP [address] [place] [address] 07/17/2024 12:00 PM EDT Office Visit [facility], [facility] [address] [place], [place] [address] Eladio Cortes CRNP [address] [facility] [place] [address] 11/04/2024 8:00 AM EST Hospital Encounter ENDO OSS[facility], Endoscopy Room [facility] [address] [place] [address] Lisa Washington DO [address] [place] [address] 11/04/2024 8:00 AM EST - 11/04/2024 9:00 AM EST Surgery ENDO OSS, Endoscopy Room [facility] [address] [place] [address] Lisa Washington DO [address] [place] [address] COLONOSCOPY FLEXIBLE PROXIMAL DIAGNOSTIC 11/14/2024 11:40 AM EST Office Visit [facility] [address] [facility] [id number] Marylou Carrillo MD [address] [place] [address] Scheduled Procedures Name Priority Associated Diagnoses Date/Ti me COLONOSCOPY FLEXIBLE PROXIMA L DIAGNOSTIC Iron deficiency anemia 11/04/2024 8:00 AM EST ESOPHAGOGASTRODUODENOSCOPY ( EGD), FLEXIBLE, TRANSORAL, DIAGNOSTIC Iron deficiency anemia 11/04/2024 8:00 AM EST Scheduled Referrals Name Type Priority Associated Diagnoses Orde r Schedule PAIN MEDICINE REFERRAL OP Referral Within 30 days (routine) Pain in both thighs Chronic midline low back pain with bilateral sciatica Ordered: 06/03/2024 PHARMACIST MEDS THERAPY MGMT REFERRAL OP Referral Within 30 days (routine) Pain in both thighs Chronic midline low back pain with bilateral sciatica Peripheral polyneuropathy Polyarthralgia Neuropathy Ordered: 06/03/2024 Health Maintenance Due Date Last Done Comments [...] Colorectal Cancer Screening 01/31/2023 COVID-19 Vaccine ( - 2022- season) 2023 04/02/2021, 03/12/2021 Zoster [...] this encounter Medical Devices Implanted Type Area Market Development Director Device Identifier Shelf Expiration Date Model / Serial / Lot Forehd End 3.0 Trpl [id number] - [id number] Implanted:Qty: 1 on 08/02/2018 by Magy Brand MD at OR [facility] Left: Head [employer] 08/23/2019 [id number]-010-016 [id number] / [id number] Forehd End 3.0 Trpl [id number] - [id number] Implanted:Qty: 1 on 08/02/2018 by Magy Brand MD at OR [facility] Right: Head [employer] 02/03/2020 [id number] / [id number] documented as of this encounter Visit Diagnoses Diagnosis Pain in both thighs- Primary Chronic midline low back pain with bilateral sciatica Fibromyalgia Mylagia and myositis, unspecified Peripheral polyneuropathy Unspecified hereditary and idiopathic peripheral neuropathy Polyarthralgia Pain in joint, multiple sites Neuropathy Mononeuritis of unspecified site Iron deficiency anemia Iron deficiency anemia, unspecified documented in this encounter Administered Medications Inactive Administered Medications - up to 3 most recent administrations Medication Order MAR Action Action Date Dose Rate Site keTORolac (Toradol) 30 MG/ML inj 30 mg 30 mg, Intramuscular, ONCE, On Sun06/03/24 at 1230, For 1 dose Given 06/03/2024 11:54 AM EDT 30 mg Dorsogluteal Left documented in this encounter Care Teams Icer Air Conditioning Relationship Specialty Start Date End Date Marylou Carrillo MD [address] [place] [facility] [place] [address] PCP - General Family Medicine 02/28/24 documented as of this encounter
--- OUTSIDE RECORDS SUMMARY | 2024-10-02 21:50 | External Medical Summary ---
Author Name Unknown Address Unknown Organization [id number]:LABORATORY [facility] [place] - [address] [place] [address] [place] [address] Laboratory Report Ordering Provider Test Date Status LAVON BRANHAM 06/03/2024 12:10:07 Final Observation Date Value Abnormality Reference (Units ) Status Ferritin 06/03/2024 12:10:07 16 13-150 (ng /mL) Final Postmenopausal women have hi gher ferritin levels than pre-menopausal women. The above reference interval is based on pre-menopausal women. Performing Location [facility] - [address] [place] [address]
--- OUTSIDE RECORDS SUMMARY | 2024-10-02 21:50 | External Medical Summary ---
Author Name Unknown Address Unknown Organization [id number]:[facility] - [address] [place] [address] Laboratory Report Ordering Provider Test Date Status LAVON BRNAHAM 06/03/2024 12:10:07 Final Observation Date Value Abnormality Reference (Units ) Status Iron 06/03/2024 12:10:07 146 33-151 (ug/dL) Final Iron-binding capacity 06/03/2024 12:10:07 486 Above high normal 250-425 (ug/dL) Final Transferrin Sat % 06/03/2024 12:10:07 30 15-55 (%) Final Performing Location [facility] - [address] [place] [address]
--- OUTSIDE RECORDS SUMMARY | 2024-10-02 21:50 | External Medical Summary ---
Author Name Unknown Address Unknown Organization [id number]:[facility] [place] [address] [place] [address] Laboratory Report Ordering Provider Test Date Status BELKIS MOODY 06/03/2024 12:10:07 Final Observation Date Value Abnormality Reference (Units ) Status Cyclic citrullinated peptide IgG Ab [Presence] in Serum 06/03/2024 12:10:07 Negative Negative Final Cyclic citrullinated peptide IgA+IgG Ab [Units/volume] in Serum or Plasma by Immunoassay 06/03/2024 12:10:07 0.5 <7 (U/mL) Final Performing Location [facility] [place] [address] [place] [address]
--- OUTSIDE RECORDS SUMMARY | 2024-10-02 21:50 | External Medical Summary ---
Author Name Unknown Address Unknown Organization [id number]:[facility] - [address] [place] [address] Laboratory Report Ordering Provider Test Date Status BELKIS MOODY 06/03/2024 12:10:07 Final Observation Date Value Abnormality Reference (Units ) Status C4 06/03/2024 12:10:07 13 10-40 (mg/ dL) Final Performing Location [facility] - [address] [place] [address]
--- OUTSIDE RECORDS SUMMARY | 2024-10-02 21:50 | External Medical Summary ---
Author Name Unknown Address Unknown Organization [id number]:LABORATORY [facility] [place] [place] - [address] [place] [address] Laboratory Report Ordering Provider Test Date Status BELKIS MOODY 06/03/2024 12:10:07 Final Normal: <150 mg/ g creatinine
High: 150-500 mg/g creatinine
Very High: >500 mg/g creatinine
Nephrotic: >3000 mg/g creatinine Observation Date Value Abnormality Reference (Units ) Status Protein/Creatinine [Ratio] in Urine 06/03/2024 12:10:07 99 <150 (mg/g ) Final Protein, Urine 06/03/2024 12:10:07 8 (mg/dL) Final Creatinine, Urine 06/03/2024 12:10:07 81 (mg/dL) Final Performing Location LABORATORY [facility] [place] [place] - [address] [place] [address]
--- OUTSIDE RECORDS SUMMARY | 2024-10-02 21:50 | External Medical Summary ---
Author Name Unknown Address Unknown Organization K01:[facility] [place] [address] [place] [address] Laboratory Report Ordering Provider Test Date Status BRETT HARO 06/03/2024 12:10:07 Final Observation Date Value Abnormality Reference (Units ) Status MYCODE SPECIMEN-SST 06/03/2024 12:10:07 Freezing of extracted DNA, whole blood and/or serum. Final Performing Location [facility] - [address] [place] [address]
--- OUTSIDE RECORDS SUMMARY | 2024-10-02 21:50 | External Medical Summary ---
Author Name Unknown Address Unknown Organization K01:[facility] [place] [address] [place] [address] Laboratory Report Ordering Provider Test Date Status BELKIS MOODY 06/03/2024 12:10:07 Final Observation Date Value Abnormality Reference (Units) Status PARAPROTEIN NORMAL/ABNORMAL 06/03/2024 12:10:07 Normal Normal Final Immunofixation for Serum or Plasma 06/03/2024 12:10:07 No monoclonal gammopathy detected. Final Performing Location [facility] [place] [address] [place] [address]
--- OUTSIDE RECORDS SUMMARY | 2024-10-02 21:50 | External Medical Summary ---
Author Name Unknown Address Unknown Organization K01:LABORATORY [facility] [place] - [address] [place] [address] Laboratory Report Ordering Provider Test Date Status BELKIS MOODY 06/03/2024 12:10:07 Final Observation Date Value Abnormality Reference (Units ) Status SCL-70 extractable nuclear IgG Ab [Presence] in Serum by Immunoassay 06/03/2024 12:10:07 Negative Negative Final SCL-70 extractable nuclear IgG Ab [Units/volume] in Serum by Immunoassay 06/03/2024 12:10:07 0.9 <7 (U/mL) Final Performing Location LABORATORY [facility] [place] - [address] [place] [address]
--- OUTSIDE RECORDS SUMMARY | 2024-10-02 21:50 | External Medical Summary ---
Author Name Unknown Address Unknown Organization K01:[facility] - [address] [place] [address] Laboratory Report Ordering Provider Test Date Status LAVON BRANHAM 06/03/2024 12:10:07 Final Observation Date Value Abnormality Reference (Units ) Status SYNC LEUKOCYTES IN BLOOD BY AUTOMATED COUNT 06/03/2024 12:10:07 7.14 4.00-10.80 (K/uL) Final Segs 06/03/2024 12:10:07 63.3 40.0-75.0 (%) Final Lymphs % 06/03/2024 12:10:07 26.5 18.0-42.0 (%) Final Monos 06/03/2024 12:10:07 7.1 1.0-11.0 (%) Final Eosinophils 06/03/2024 12:10:07 2.2 0.0-6.0 (%) Final Basos 06/03/2024 12:10:07 0.6 0.0-2.0 (%) Final Immature Granulocyte, Percent 06/03/2024 12:10:07 0.3 0.0-2.0 (%) Final Absolute Segs 06/03/2024 12:10:07 4.52 1.80-7.70 (K/uL) Final Lymphs, absolute 06/03/2024 12:10:07 1.89 1.00-4.80 (K/ul) Final Monos, Abs 06/03/2024 12:10:07 0.51 0.00-1.10 (K/uL) Final Eos, Abs 06/03/2024 12:10:07 0.16 0.00-0.70 (K/uL) Final Basos, Abs 06/03/2024 12:10:07 0.04 0.00-0.20 (K/uL) Final Immature Granulocytes, Number 06/03/2024 12:10:07 0.02 0.00-0.20 (K/uL) Final Performing Location [facility] [place] [address] [facility] [address]
--- OUTSIDE RECORDS SUMMARY | 2024-10-02 21:50 | External Medical Summary ---
Author Name Unknown Address Unknown Organization K01[place] [facility] [place] [address] [place] [address] Laboratory Report Ordering Provider Test Date Status BRETT HARO 06/03/2024 12:10:07 Final Observation Date Value Abnormality Reference (Units ) Status MYCODE SPECIMEN-SST 06/03/2024 12:10:07 Freezing of extracted DNA, whole blood and/or serum. Final Performing Location [facility] - [address] [place] [address]
--- OUTSIDE RECORDS SUMMARY | 2024-10-02 21:50 | External Medical Summary | Summary of Care ---
Author Name Unknown Organization [facility] Address [address] [facility] [place] [address] Phone [phone] Care Team Providers Care Phone Screener Name Role Phone Marylou Carrillo MD Primary Care Provid er Encounter Details Date Type Department Care Team (Late st Contact Info) Description 06/16/2024 Telephone [facility]ology[facility] [address] [place] [address] Jeaneth Blackburn CRNP [address] [facility] [place] [address] Allergies Active Allergy Reactions Criticality Noted Date Comments Adhesive Tape Hives,Itching,Rash 07/10/2011 Iodine Hives,Itching,Rash 07/10/2011 Topical iodine Tramadol Nausea/vomiting 06/03/2024 documented as of this encounter (statuses as of 06/16/2024) Medications Medication Sig Dispensed Refills Start Date [...] as of this encounter (statuses as of 06/16/2024) Active Problems Problem Noted Date Diagnosed Date [...] as of this encounter (statuses as of 06/16/2024) Resolved Problems Problem Noted Date Diagnosed Date Resolved Date Status post nasal surgery 08/02/2017 Tobacco use disorder 07/18/2012 021 Preeclampsia 07/05/2012 10/19/2021 documented as of this encounter (statuses as of 06/16/2024) Immunizations Name Administration Dates Next Due COVID-19 [...] encounter Miscellaneous Notes * Telephone Encounter - Lisa Velásquez OSA - 06/16/2024 12:07 PM EDT Letter sent to schedule hem onc apt documented in this encounter Plan of Treatment Upcoming Encounters Date Type Department Care Team (Latest Contact Info) Description 07/17/2024 12:00 PM EDT Office Visit [facility], [facility] [address] [facility] [address] Eladio Cortes CRNP [address] [place] [address] 11/04/2024 8:00 AM EST Hospital Encounter ENDO OSS, Endoscopy Room [facility] [address] [place] [phone] Lisa Washington DO [address] [place] [address] 11/04/2024 8:00 AM EST - 11/04/2024 9:00 AM EST Surgery ENDO [facility], Endoscopy Room [facility] [address] [place] [phone] Lisa Washington DO [address] [place] [address] COLONOSCOPY FLEXIBLE PROXIMAL DIAGNOSTIC 11/14/2024 11:40 AM EST [facility] [address] [phone] Marylou Carrillo MD [address] [facility] [address] Scheduled Procedures Name Priority Associated Diagnoses Date/Ti [...] 01/31/2013 Colorectal Cancer Screening 01/31/2023 COVID-19 Vaccine (2022- season) 2023 04/02/2021, 03/12/2021 Zoster Vaccines (1 [...] this encounter Medical Devices Implanted Type Area Hide And Skin Fleshing Machine Operator Device Identifier Shelf Expiration Date Model / Serial / Lot Forehd End 3.0 Trp [id number] - [id number] Implanted:Qty: 1 on 08/02/2018 by Magy Brand MD at OR [facility] [place] Left: Head [employer] 08/23/2019 CFD-010-016 [id number] / / [id number] Forehd End 3.0 Trpl [id number] - [id number] Implanted:Qty: 1 on 08/02/2018 by Magy Brand MD at OR [facility] [place] Right: Head [employer] 02/03/2020 CFD-010-016 [id number] / [id number] documented as of this encounter Care Teams Phone Screener Relationship Specialty Start Date End Date Marylou Carrillo MD [address] [facility] [place] [id number] PCP - General Family Medicine 02/28/24 documented as of this encounter
--- OUTSIDE RECORDS SUMMARY | 2024-10-02 21:50 | External Medical Summary | Summary of Care ---
Author Name Unknown Organization [facility] Address [address] [facility] [address] Phone [phone] Care Team Providers Care Senior Cisco Network Engineer Name Role Phone Marylou Carrillo MD Primary Care Provid er Reason for Visit * Reason Onset Date Comments Referral 06/07/2024 [facility] Pain Encounter Details Date Type Department Care Team (Late st Contact Info) Description 06/07/2024 Telephone Centralized Clinical Pharmacy Services, [facility] Badillo [address] [place] [address] [place] [address] Pharmacist2, [facility] [address] [place] [address] Referral ([facility] Pain) Allergies Active Allergy Reactions Criticality Noted Date Comments Adhesive Tape Hives,Itching,Rash 07/10/2011 Iodine Hives,Itching,Rash 07/10/2011 Topical iodine Tramadol Nausea/vomiting 06/03/2024 documented as of this encounter (statuses as of 06/09/2024) Medications Medication Sig Dispensed Refills Start Date [...] as of this encounter (statuses as of 06/09/2024) Active Problems Problem Noted Date Diagnosed Date [...] as of this encounter (statuses as of 06/09/2024) Resolved Problems Problem Noted Date Diagnosed Date Resolved Date Status post nasal surgery 08/02/2017 Tobacco use disorder 07/18/2012 021 Preeclampsia 07/05/2012 10/19/2021 documented as of this encounter (statuses as of 06/09/2024) Immunizations Name Administration Dates Next Due COVID-19 [...] * Telephone Encounter - Juan Francisco [facility] - 06/09/2024 8:26 AM EDT Referral received and reviewed. Reason for referral: Pain Please Schedule patient. Referring provider: Marylou Carrillo MD Initial appt length: 60 min Appointment type indicated: Inperson Required Preferred Clinic for Appointment: [facility] Juan Francisco [facility] 06/09/2024, 8:26 AM * Telephone Encounter - Francie Tobar [facility] - 06/07/2024 8:36 AM EDT Pharmacist Medication Therapy Management: Minimum frequency patient should be seen in person for medication management: as appropriate per clinical condition and patient status By my signature, I understand that my patient Martina Saunders will have her medication therapy managed by the [facility] Medication Therapy Disease Management Clinic ([facility]) per established policies, procedures, and protocols. I also certify that this referral may serve as an initiation of service forthe management of drug therapy in the above noted patient. [facility] providers will be responsible for scheduling patient visits, obtaining appropriate laboratory studies, and adjusting medication management therapy per patient's need, in addition to those roles spelled out in the clinic policy, procedures, and drug management protocols. I understand that the service provided by the [facility] Clinic is voluntary and have informed patient that they can refuse the service at their discretion. I am aware that the [facility] will provide me with a copy of the patient encounter via my [employer]. I authorize the [facility] Clinic to carry out these activities on my behalf. I consider this program to be a necessary part of the patient's medical care. Marylou Carrillo MD Order Specific Questions Referral Priority Within 30 days (routine) Where should this appointment be scheduled? [facility] Referring Provider Role: Primary Care Reason for Referral: Pain Pain Diagnosis: Back pain Pain Treatment Options: Non-opioids only Pain Treatment Goal: Med Optimization documented in this encounter Plan of Treatment Upcoming Encounters Date Type Department Care Team (Latest Contact Info) Description 06/16/2024 9:30 AM EDT Office Visit Hematology/Oncology [facility] [place] [facility] [phone] Jeaneth Blackburn CRNP [address] [facility] [address] 07/17/2024 12:00 PM EDT Office Visit Interventional Pain Center, [facility] [address] [facility] [place] [address] Eladio Cortes CRNP [address] [facility] [address] 11/04/2024 8:00 AM EST Hospital Encounter ENDO OSSC, Endoscopy Room [facility] [address] [place] [phone] Lisa Washington DO [address] [place] [address] 11/04/2024 8:00 AM EST - 11/04/2024 9:00 AM EST Surgery ENDO OSS, Endoscopy Room [facility] [address] [place] [phone] Lisa Washington DO [address] [place] [address] COLONOSCOPY FLEXIBLE PROXIMAL DIAGNOSTIC 11/14/2024 11:40 AM EST Office Visit [facility] [address] [phone] Marylou Carrillo MD [address] [facility] [address] Scheduled Procedures Name Priority Associated Diagnoses Date/Ti [...] this encounter Medical Devices Implanted Type Area Avionics Systems Engineer Device Identifier Shelf Expiration Date Model / Serial / Lot Fore End 3.0 Trpl [id number] - [id number] Implanted:Qty: 1 on 08/02/2018 by Magy Brand MD at [place] [facility] [place] Left: Head [employer] 08/23/2019 CFD-010-016 7 / / [id number] Forehd End 3.0 Trpl [id number] - [id number] Implanted:Qty: 1 on 08/02/2018 by Magy Brand MD at OR [facility] [place] Right: Head [employer] 02/03/2020 CFD-010-016 [id number] / [id number] documented as of this encounter Care Teams Senior Cisco Network Engineer Relationship Specialty Start Date End Date Marylou Carrillo MD [address] [place] [address] PCP - General Family Medicine 02/28/24 documented as of this encounter
--- OUTSIDE RECORDS SUMMARY | 2024-10-02 21:50 | External Medical Summary ---
Author Name Unknown Address Unknown Organization [id number]:[facility] [place] - [address] [place] [address] Laboratory Report Ordering Provider Test Date Status BELKIS MOODY 06/03/2024 12:10:07 Final Observation Date Value Abnormality Reference (Units ) Status Neutrophil cytoplasmic Ab [Presence] in Serum by Immunofluorescence 06/03/2024 12:10:07 Negative Negative Final Neutrophil cytoplasmic Ab [Presence] in Serum by Immunofluorescence 06/03/2024 12:10:07 Negative Negative Final Negative for ANCA. Performing Location [facility] [place] [facility] - [address] [place] [address]
--- OUTSIDE RECORDS SUMMARY | 2024-10-02 21:50 | External Medical Summary ---
Author Name Unknown Address Unknown Organization [id number]:[facility] [place] - [address] [place] [address] Laboratory Report Ordering Provider Test Date Status BELKIS MOODY 06/03/2024 12:10:07 Final Observation Date Value Abnormality Reference (Units ) Status Complement C3c [Mass/volume] in Serum or Plasma 06/03/2024 12:10:07 123 90-180 (mg/dL) Final Performing Location [facility] - [address] [place] [address]
--- OUTSIDE RECORDS SUMMARY | 2024-10-02 21:50 | External Medical Summary ---
Author Name Unknown Address Unknown Organization [id number][place] [place] [address] [place] [address] Laboratory Report Ordering Provider Test Date Status BELKIS MOODY 06/03/2024 12:10:07 Final Observation Date Value Abnormality Reference (Units) Status PARAPROTEIN NORMAL/ABNORMAL 06/03/2024 12:10:07 Normal Normal Final Protein 06/03/2024 12:10:07 7.4 6.0-8.3 (g/dL) Final Albumin/Protein.total [Pure mass fraction] in Serum or Plasma by Electrophoresis 06/03/2024 12:10:07 3.66 3.30-4.40 (g/dL) Final Alpha 1 globulin/Protein.tota l [Pure mass fraction] in Serum or Plasma by Electrophoresis 06/03/2024 12:10:07 0.25 0.10-0.30 (g/dL) Final Alpha 2 globulin/Protein.tota l [Pure mass fraction] in Serum or Plasma by Electrophoresis 06/03/2024 12:10:07 1.02 Above high normal 0.60-1.00 (g/dL) Final Beta globulin/Protein.tota l [Pure mass fraction] in Serum or Plasma by Electrophoresis 06/03/2024 12:10:07 1.02 0.80-1.30 (g/dL) Final Gamma globulin/Protein.tota l [Pure mass fraction] in Serum or Plasma by Electrophoresis 06/03/2024 12:10:07 1.45 0.70-1.70 (g/dL) Final Protein Fractions [Interpretation] in Serum or Plasma by Electrophoresis Narrative 06/03/2024 12:10:07 No paraprotein detected. Final Performing Location [facility] [place] [address] [place] [address]
[2024-10-03] MEDS: DULoxetine HCL 20 MG CAP PO SCH (05:59)
--- NOTE | 2024-10-03 10:12 | Orthopedic Consultation ---
Date of Service October 03, 2024 Assessment & Plan (1) Spondylolisthesis, lumbosacral region: (2) Foraminal stenosis of lumbosacral region: (3) Lumbosacral radiculopathy: (4) Lumbosacral spondylosis: (5) Pars defect with spondylolisthesis: Plan Patient has an L5-S1 spondylolisthesis with foraminal stenosis. Grossly she is neurologically intact, has been ambulating to toilet. No severe central or lateral recess stenosis. She has foraminal stenosis likely contributing to some radicular pain, on suboxone for chronic back pain and history of high dose opioid use. Have spoken with Dr. Draper of hospital medicine and we will start her on steroids. Also pain management consult has been placed. No need for urgent surgical intervention, chronic pain with exacerbation. We would like to maximize pain control and PT. Any surgery would be a fusion and I explained this would exclusively be for leg pain and not her chronic back pain. Will follow along to see her response to steroids and PT. History of Present Illness Reason for Consultation: Back, leg pain Attending Physician: Cecily Draper MD Patient is a 49 year old female admitted for multiple complaints. States one week ago she bent over and was twisting to clean the floor. She felt a sharp stabbing pain radiating out to the sides. Occasional pain radiating in L5 pattern bilaterally, also reports non-dermatomal pain. States she has numbness in bilateral feet. She has several episodes where she has had loose stools. Also reports some flank pain and incomplete emptying of bladder, although normal sensation, current UTI on treatment. Most severe pain is in low back, worse with movements. Allergies Allergy/AdvReac Type Severity Reaction Status Date / Time iodine Allergy Mild RASH Verified 10/01/24 21:24 adhesive AdvReac Intermediate RASH Verified 10/01/24 21:24 Home Medications Medication Instructions Recorded Confirmed Type buprenorphine 8 mg-naloxone 2 mg 2 film sublingual BID 06/25/21 10/01/24 History sublingual film ondansetron HCl 4 mg tablet 4 mg PO Q8H PRN Nausea 11/19/21 10/01/24 History methocarbamol 500 mg tablet 500 mg PO Q8H #14 tabs 05/29/24 10/01/24 Rx dextroamphetamine-amphetamine 20 20 mg PO DAILY 10/01/24 10/01/24 History mg tablet duloxetine 20 mg capsule,delayed 40 mg PO DAILY 10/01/24 10/01/24 History release duloxetine 60 mg capsule,delayed 60 mg PO HS 10/01/24 10/01/24 History release lisinopril 10 mg tablet 10 mg PO DAILY 10/01/24 10/01/24 History ocztrdsi-epfv-xrey 8 mg-folic 400 1 tab PO DAILY 10/01/24 10/01/24 History mcg-K 50 mcg-lutein 300 mcg tablet (Multivitamin Women 50 Plus) Past Med/Surg History Problem List (Updated 10/03/24 @ 10:49 by Silvestre Roberts MD) Pars defect with spondylolisthesis Lumbosacral spondylosis Lumbosacral radiculopathy Foraminal stenosis of lumbosacral region Spondylolisthesis, lumbosacral region Hypoglycemia Opioid dependence on maintenance agonist therapy, no symptoms UTI due to Klebsiella species Pars defect of lumbar spine Degenerative disc disease at L5-S1 level Bilateral lumbar radiculopathy Neural foraminal stenosis of lumbosacral spine UTI (urinary tract infection) (Acute) Back pain (Acute) COVID-19 (Acute) SOB (shortness of breath) (Acute) Acute bronchitis (Acute) Spinal stenosis of lumbar region (Chronic) Contusion of foot (Acute) Dental abscess (Acute) Post-operative infection (Acute) SOB (shortness of breath) (Acute) Social History Smoking Status: Unknown if ever smoked Tobacco Type: Cigarettes Hx Alcohol Use: No Hx Substance Use: No Preferred Language: Khmer Communication Ability: Effective Medical Resident Required: No Beliefs That Will Affect Care: None Current Living Situation: Family Feels Safe at Home: Yes Assistive Devices: Cane Review of Systems All systems reviewed & are unremarkable except as noted in HPI & below. positive for lumbar pain, feet numbness, leg pain Physical Exam diffusely 3-4/5 strength in hip flex, quad, tib ant, ehl, gastroc due to poor effort, worsens back pain, different strength on repeated exams SILT L2-L4, decreased sensation L5, S1 bilateral No ankle clonus Respiratory normal respiratory effort Results & Data Results & Data Laboratory Results . Diagnostic Findings MRI lumbar spine reviewed and interprted personally. Ni significant degenerative changes or stenosis L1-L4. L5-S1 shows grade 1 spondylolisthesis with moderate to severe bilateral foraminal stenosis, likely L5 compression. No severe central canal or lateral recess stenosis to suggest cauda equina compression. PG Care Time/CCT Total # of Minutes Spent Total Time Spent with Patient: Total time spent is greater than 50% in coordination of care (as documented) at patient's floor/unit and/or counseling patient: Coding Level of Care Code 63021 IN/OBS CONSULT LVL 3,45M Diagnoses Spondylolisthesis, lumbosacral region M43.17 Foraminal stenosis of lumbosacral region M48.07 Lumbosacral radiculopathy M54.17 Osteoarthritis of spine with radiculopathy, lumbosacral region M47.27 Spinal osteoarthritis complication: with radiculopathy Pars defect with spondylolisthesis M43.10 (4) Lumbosacral spondylosis Spinal osteoarthritis complication: with radiculopathy Qualified Code(s): M47.27 - Other spondylosis with radiculopathy, lumbosacral region
[2024-10-03] MEDS ORDERED: methylPREDNISolone 4 MG TAB, 6 DAY TAPER PO SCH (10:30)
[2024-10-03] MEDS: methylPREDNISolone 4 MG TAB PO SCH ×2 (11:39→13:22)
[2024-10-03] MEDS: carvediloL 3.125 MG TAB PO ONE (13:43)
--- NOTE | 2024-10-03 14:08 | Pain Management Consultation ---
Date of Consultation October 03, 2024 Assessment & Plan (1) Pars defect with spondylolisthesis: (2) Spondylolisthesis, lumbosacral region: (3) Degenerative disc disease at L5-S1 level: (4) Lumbosacral radiculopathy: (5) Foraminal stenosis of lumbosacral region: Plan 1. Recommend continuation of current medication regimen including Robaxin, gabapentin, lidocaine patch, Tylenol, Cymbalta. 2. Recommend continuation of Medrol Dosepak 3. Patient will remain off of Suboxone and discuss further with her addiction medicine practitioner. 4. Could consider L5-S1 interlaminar epidural steroid injection on an outpatient basis but with the current amount of allodynia that the patient is displaying on exam, interventional procedures may be deferred. History of Present Illness Attending Physician: Cecily Draper MD History of Present Illness This is a 49-year-old female that has been admitted to the [facility] for low back pain, urinary tract infection, hypoglycemia. She states that last week she was cleaning spilled coffee off of the floor and felt a sudden sharp jabbing pain along the right low back. There is an intermittent shooting pain along the lateral aspects of the legs, right greater than left. Currently she is receiving Robaxin 500 mg 3 times daily, gabapentin 300 mg 3 times daily, lidocaine patch, Tylenol 1 g 3 times daily, Cymbalta 20 mg twice daily, and started on a Medrol Dosepak today. She does describe numbness along the bilateral feet. She was describing loose stools and incomplete emptying of the bladder. She was found to have a current urinary tract infection and receiving antibiotic treatment. She has been seeing an addiction medicine practitioner since May for chronic pain and previous opioid dependence. She has been receiving 28 Suboxone films each month and the patient states that she is taking this medication sparingly, typically 5 a month and that accounts for why she has not had a new refill since 07/30/2024. She states that the Suboxone was providing moderate pain relief. There was a discussion on trying a once a month injection rather than the Suboxone. No true bowel/bladder incontinence, saddle anesthesia, foot drop, leg weakness, falls. Case discussed with Dr. Carrie Morris Allergies Allergy/AdvReac Type Severity Reaction Status Date / Time iodine Allergy Mild RASH Verified 10/01/24 21:24 adhesive AdvReac Intermediate RASH Verified 10/01/24 21:24 Home Medications Medication Instructions Recorded Confirmed Type buprenorphine 8 mg-naloxone 2 mg 2 film sublingual BID 06/25/21 10/01/24 History sublingual film ondansetron HCl 4 mg tablet 4 mg PO Q8H PRN Nausea 11/19/21 10/01/24 History methocarbamol 500 mg tablet 500 mg PO Q8H #14 tabs 05/29/24 10/01/24 Rx dextroamphetamine-amphetamine 20 20 mg PO DAILY 10/01/24 10/01/24 History mg tablet duloxetine 20 mg capsule,delayed 40 mg PO DAILY 10/01/24 10/01/24 History release duloxetine 60 mg capsule,delayed 60 mg PO HS 10/01/24 10/01/24 History release lisinopril 10 mg tablet 10 mg PO DAILY 10/01/24 10/01/24 History xsghpscy-iiwb-fjwt 8 mg-folic 400 1 tab PO DAILY 10/01/24 10/01/24 History mcg-K 50 mcg-lutein 300 mcg tablet (Multivitamin Women 50 Plus) Patient History Social History Smoking Status: Unknown if ever smoked Tobacco Type: Cigarettes Hx Alcohol Use: No Hx Substance Use: No Preferred Language: Danish Communication Ability: Effective Voting Machine Repairer Required: No Beliefs That Will Affect Care: None Current Living Situation: Family Feels Safe at Home: Yes Assistive Devices: Cane Physical Exam Physical Exam: GENERAL: This is a 49-year-old female in no acute distress. HEAD/FACE: Normocephalic and atraumatic. EYES: No drainage or conjunctival injection. ENT: Nose without bleeding or discharge. Oral mucosa moist. NECK: Full ROM without apparent pain. No swelling or masses noted. RESPIRATORY: Patient with unlabored breathing. No signs of respiratory distress. CHEST/AXILLA: Chest movement symmetrical. No deformities noted. ABDOMEN/GI: No distension BACK: Moves without difficulty. Diffuse allodynia to minimal touch from the thoracic to lumbosacral region. No SI joint tenderness. No myofascial spasm or trigger points noted. SKIN: [place], warm and dry. No rash noted. MS/EXTREMITY: No swelling, no deformities. Moving extremities appropriately. NEURO: Alert and appears oriented. Speech is fluent. Cranial Nerves are grossly intact. Results (Pain Clinic) Diagnostic Review MRI Findings: Exam(s): MRI L SPINE Without Contrast EXAM: MR Lumbar Spine Without Intravenous Contrast CLINICAL HISTORY: Reason for exam: low back, bowel incontinence, legs weak. TECHNIQUE: Magnetic resonance images of the lumbar spine without intravenous contrast in multiple planes. COMPARISON: CT scan from August 13, 2013 FINDINGS: Vertebrae: There are chronic appearing bilateral pars defects at L5 and 6 mm grade 1 anterior listhesis of L5 on S1. No acute fracture. Spinal cord: Unremarkable. Normal signal. Soft tissues: Unremarkable. DISCS/SPINAL CANAL/NEURAL FORAMINA: L1-L2: Unremarkable. No significant disc disease. No stenosis. L2-L3: Unremarkable. No significant disc disease. No stenosis. L3-L4: Unremarkable. No significant disc disease. No stenosis. L4-L5: Unremarkable. No significant disc disease. No stenosis. L5-S1: Disc dehydration and loss of disc space height at L5-S1. There is 4 mm posterior disc bulge without spinal stenosis. There is moderate to severe bilateral neural foraminal narrowing. IMPRESSION: 1. There are chronic appearing bilateral pars defects at L5 and 6 mm grade 1 anterior listhesis of L5 on S1. 2. Disc dehydration and loss of disc space height at L5-S1. There is 4 mm posterior disc bulge without spinal stenosis. There is moderate to severe bilateral neural foraminal narrowing. Electronically signed by: Orlando Loaiza MD 10/01/24 19:35 PM
--- NOTE | 2024-10-03 15:19 | Electrocardiogram Report ---
Test Reason : Blood Pressure : */* mmHG Vent. Rate : 87 BPM Atrial Rate : 87 BPM P-R Int : 176 ms QRS Dur : 80 ms QT Int : 376 ms P-R-T Axes : 58 31 34 degrees QTcB Int : 452 ms Normal sinus rhythm Possible Anterior infarct , age undetermined Abnormal ECG When compared with ECG of 25-Jun-2021 18:29, No significant change was found Confirmed by Chriss Segal ([id number]) on 10/03/2024 3:18:59 PM Referred By: REFERRED SELF Confirmed By: Chriss Segal
--- NOTE | 2024-10-03 16:16 | Hospitalist Progress Note ---
Date of Service October 03, 2024 Assessment & Plan (1) Neural foraminal stenosis of lumbosacral spine: (2) Bilateral lumbar radiculopathy: (3) UTI due to Klebsiella species: (4) Hypoglycemia: (5) Degenerative disc disease at L5-S1 level: (6) Opioid dependence on maintenance agonist therapy, no symptoms: (7) Pars defect of lumbar spine: Plan Ms. Saunders is a 49-year-old female with past medical history significant for gestational diabetes, asthma mild persistent, increased edema of vocal cords, chronic ethmoidal sinusitis, Raynaud's disease, venous insufficiency, peptic ulcer disease, GERD, obesity, overactive bladder, mild myositis, fibromyalgia, tinnitus of right ear, neuropathy, iron deficiency anemia, dysphonia, opioid dependence, anxiety who was admitted for acute on chronic back pain. #Severe acute on chronic back pain #spondylolisthesis, L%-S1 #foraminal stenosis #Lumbosacral radiculopathy L5-S1 spondylolisthesis with foraminal stenosis. neurologically intact Ortho spine consulted: discussed with Dr Deleon, agree to medrol dose matthew Pain management consulted: continue robaxin, gabapentin, lidocaine and tylenol continue cymbalta Potential for outpatient HODA discontinue Suboxone PT/OT: Home health #Acute uncomplicated UTI Continue ceftriaxone for Klebsiella UTI, monitor sensitivities #HTN continue lisinopril started coreg dvt lovenox Admission and Anticipated Discharge Date Admission Date: October 01, 2024 Subjective NAEO Reports marginal improvement in pain states she does not want to take "so many medications" Understands that surgery is not an option at this time and agrees to pain management eval Physical Exam Constitutional: WD/WN, vitals as above Respiratory: normal respiratory effort, lungs clear to auscultation Cardiovascular: RRR, no murmur, no edema Musculoskeletal: no cyanosis or clubbing, extremities motor strength 5/5 Results & Data Results & Data Vital Signs (Past 12 Hours) Vital Signs Temp Pulse Resp BP Pulse Ox O2 Del Method 10/03/24 15:27 36.7 C 78 12 146/81 H 93 Room Air 10/03/24 11:42 36.5 C 102 H 14 166/102 H 96 Room Air 10/03/24 09:30 Room Air 10/03/24 07:55 37.1 C 88 15 147/88 H 97 Room Air Medications Administered Home Medications Medication Instructions Recorded Confirmed Last Taken buprenorphine 8 mg-naloxone 2 mg 2 film sublingual BID 06/25/21 10/01/24 08/31/24 06:00 sublingual film ondansetron HCl 4 mg tablet 4 mg PO Q8H PRN Nausea 11/19/21 10/01/24 10/01/24 20:00 methocarbamol 500 mg tablet 500 mg PO Q8H #14 tabs 05/29/24 10/01/24 09/26/24 08:00 dextroamphetamine-amphetamine 20 20 mg PO DAILY 10/01/24 10/01/24 10/01/24 06:00 mg tablet duloxetine 20 mg capsule,delayed 40 mg PO DAILY 10/01/24 10/01/24 10/01/24 06:00 release duloxetine 60 mg capsule,delayed 60 mg PO HS 10/01/24 10/01/24 09/30/24 21:00 release lisinopril 10 mg tablet 10 mg PO DAILY 10/01/24 10/01/24 10/01/24 06:00 lymbklpw-scov-dslf 8 mg-folic 400 1 tab PO DAILY 10/01/24 10/01/24 10/01/24 06:00 mcg-K 50 mcg-lutein 300 mcg tablet (Multivitamin Women 50 Plus) Active Medications Generic Name Dose Route Start Last Admin Trade Name Emmie PRN Reason Stop Dose Admin Acetaminophen 1,000 mg 10/02/24 14:00 10/03/24 13:21 Acetaminophen 500 Mg Tab PO 11/01/24 13:59 1,000 mg Q8 BROOKS Administration Amphetamine/Dextroamphetamine 20 mg 10/02/24 09:00 10/03/24 09:00 Dextroamphetamine/Amphetamine Ir 20 Mg Tab PO 10/16/24 08:59 20 mg DAILY BROOKS Administration Duloxetine HCl 60 mg 10/02/24 21:00 10/02/24 20:52 Duloxetine Hcl 60 Mg Cap PO 11/01/24 20:59 60 mg HS BROOKS Administration Duloxetine HCl 20 mg 10/03/24 07:00 10/03/24 13:21 Duloxetine Hcl 20 Mg Cap PO 11/02/24 06:59 20 mg [id number] BROOKS Administration Enoxaparin Sodium 40 mg 10/01/24 22:47 10/02/24 20:52 Enoxaparin Inj 40 Mg/0.4 Ml Syr SQ 10/31/24 22:46 40 mg PM BROOKS Administration Gabapentin 300 mg 10/02/24 14:00 10/03/24 13:21 Gabapentin 300 Mg Cap PO 11/01/24 13:59 300 mg TID BROOKS Administration Ceftriaxone Sodium 2,000 mg in 50 mls @ 100 mls/hr 10/02/24 20:30 10/02/24 21:22 Rocephin IV 10/07/24 20:29 Infused Q24H BROOKS Infusion Lidocaine 1 patch 10/02/24 11:30 10/03/24 09:00 Lidocaine 5% 1 Patch TD 11/01/24 11:29 1 patch QAM BROOKS Administration Lisinopril 10 mg 10/02/24 09:00 10/03/24 08:59 Lisinopril 10 Mg Tab PO 11/01/24 08:59 10 mg DAILY BROOKS Administration Methocarbamol 500 mg 10/02/24 14:00 10/03/24 13:21 Methocarbamol 500 Mg Tablet PO 11/01/24 13:59 500 mg TID BROOKS Administration Methylprednisolone 8 mg 10/03/24 10:30 10/03/24 11:39 Methylprednisolone 4 Mg Tab PO 10/03/24 21:01 8 mg 0700,2100 BROOKS Administration Methylprednisolone 4 mg 10/03/24 13:00 10/03/24 13:22 Methylprednisolone 4 Mg Tab PO 10/03/24 18:01 4 mg 1300,1800 BROOKS Administration Miscellaneous 1 each 10/02/24 21:00 10/02/24 20:53 Remove Lidoderm Patch N/A 11/01/24 20:59 1 each DAILY@2100 BROOKS Administration Multivitamins/Minerals 1 tab 10/02/24 09:00 10/03/24 08:59 Cerovite Adv Formula Tab PO 11/01/24 08:59 1 tab DAILY BROOKS Administration
[2024-10-03] MEDS ORDERED: carvediloL 6.25 MG TAB PO SCH (17:00)
[2024-10-04] MEDS: methylPREDNISolone 4 MG TAB PO SCH (05:33)
[2024-10-04 07:22] VITALS: O2SAT 94
--- NOTE | 2024-10-04 07:22 | Electrocardiogram Report ---
Test Reason : Blood Pressure : */* mmHG Vent. Rate : 91 BPM Atrial Rate : 91 BPM P-R Int : 154 ms QRS Dur : 78 ms QT Int : 378 ms P-R-T Axes : 75 72 22 degrees QTcB Int : 464 ms Normal sinus rhythm Normal ECG When compared with ECG of 03-Oct-2024 06:15, No significant change was found Confirmed by Juan Francisco Bedoya ([id number]) on 10/04/2024 7:22:05 AM Referred By: REFERRED SELF Confirmed By: Juan Francisco Bedoya
[2024-10-04] MEDS: lisinopril 20 MG TAB PO SCH (07:49)
[2024-10-04] MEDS: buprenorphine HCL 2 MG SUBL SL PRN (07:53)
[2024-10-04] MEDS: AMOXICILLIN/CLAVULANATE 500 MG TAB PO SCH (09:03)
[2024-10-04 10:45] VITALS: PULSE 89; RESP 18; TEMP 98.2
--- NOTE | 2024-10-04 11:11 | Discharge Summary ---
Discharge Summary Date of Service October 04, 2024 Principal Dx & Hospital Course #1 = Principal Diagnosis (1) Neural foraminal stenosis of lumbosacral spine: (2) Bilateral lumbar radiculopathy: (3) UTI due to Klebsiella species: (4) Hypoglycemia: (5) Degenerative disc disease at L5-S1 level: (6) Opioid dependence on maintenance agonist therapy, no symptoms: (7) Pars defect of lumbar spine: Plan Ms. Saunders is a 49-year-old female with past medical history significant for gestational diabetes, asthma mild persistent, increased edema of vocal cords, chronic ethmoidal sinusitis, Raynaud's disease, venous insufficiency, peptic ulcer disease, GERD, obesity, overactive bladder, mild myositis, fibromyalgia, tinnitus of right ear, neuropathy, iron deficiency anemia, dysphonia, opioid dependence, anxiety who was admitted for acute on chronic back pain. Patient evaluated by [facility] who did not recommend any surgical interventions.Pain management recommended conservative management with gabapentin, lidocaine patches, and medrol dose pack. Home health started for PT. UA positive on admission for klebsiella. Patient transitioned to augmentin. Day to day, patient with improvement in acute symptoms. On day of discharge, patient reports pain is baseline at this time and ready to go home without any acute concerns. #Severe acute on chronic back pain #spondylolisthesis, L%-S1 #foraminal stenosis #Lumbosacral radiculopathy L5-S1 spondylolisthesis with foraminal stenosis. neurologically intact Ortho spine consulted: discussed with Dr Deleon, agree to medrol dose matthew Pain management consulted: continue robaxin, gabapentin, lidocaine and tylenol continue cymbalta Potential for outpatient HODA discontinue Suboxone, can follow up with pain clinic PT/OT: Home health #Acute uncomplicated UTI augmentin x 4 more days for klebsiella uti #HTN continue lisinopril will need pcp follow up, suspect elevations iso pain Notes For Next Care Provider Follow up with Pain management for HODA Follow up blood pressures--liable in hospital, may be 2/2 pain, however, may consider 2/2 agent with close follow up Medication Changes From Visit Gabapentin 300mg TID Lidocaine patches prn Medrol dose pack Augmentin BID x 4 days Admission HPI Per Admitting Provider 49-year-old female with past medical history significant for gestational diabetes, asthma mild persistent, increased edema of vocal cords, chronic ethmoidal sinusitis, Raynaud's disease, venous insufficiency, peptic ulcer disease, GERD, obesity, overactive bladder, mild myositis, fibromyalgia, tinnitus of right ear, neuropathy, iron deficiency anemia, dysphonia, opioid dependence, anxiety presents with severe back pain. Patient says since last having severe low back pain. At times pain is shooting into her right thigh and left knee region. Having difficulty walking because of pain. Which prompted her to come to ER. In the ER that she had episode of blood sugars been 32 on the blood work. Fingerstick was 82. She was asymptomatic. Also found to have a UTI. Currently resting comfortably and vital stable. Patient states has nausea. And not eating much. She has chest pain earlier which is currently resolved. Denies any shortness of breath. Denies any hematuria. Denies burning micturition. Says stools are somewhat soft and sometimes she has to run to the bathroom.Has some abdominal pain. Feeling feverish. No headache. Vision somewhat blurry. No double vision. Has runny nose. No sore throat. No cough. Hemodynamics are okay. Past medical history. As mentioned above Past surgical history. . Colonoscopy and EGD. History of gastric fundoplasty. Esophagoscopy. Eyelid surgery. Ligation of oviducts. Nasal endoscopy. Appendectomy. Cholecystectomy. Repair of incisional hernia. Repair of nasal septum. Stereotactic cranial extradural navigation. Umbilical hernia repair. Vagotomy and pyloroplasty. Family history. Sister had breast cancer. Maternal grandmother had breast cancer. Daughter has Crohn's. Maternal grandfather had [place]. Social history. Quit smoking 2018. Smoked 0.3 pack a day for 15 years. No alcohol use. No drug use. Admission Exam Per Admitting Provider General-Not in distress Head- atraumatic Eyes- PERRL. ENT- oropharynx clear Neck- supple, no JVD. Lungs- clear to auscultation no wheezing or crackles Heart- regular rhythm; no murmur, no gallop. Abdomen- normal bowel sounds, soft, diffuse tender, no distension. Extremities- no pretibial edema, no erythema seen Neuro- alert, oriented PERRL, no facial palsy; no dysarthria; moves extremities. Musculoskeletal b/l Straight leg positive Discharge Exam Constitutional WD/WN, vitals as above Respiratory normal respiratory effort, lungs clear to auscultation Cardiovascular RRR, no murmur, no edema Musculoskeletal no cyanosis or clubbing, extremities motor strength 5/5 Updated Medication List Medication Instructions Recorded Confirmed Type buprenorphine 8 mg-naloxone 2 mg 2 film sublingual BID 06/25/21 10/01/24 History sublingual film ondansetron HCl 4 mg tablet 4 mg PO Q8H PRN Nausea 11/19/21 10/01/24 History methocarbamol 500 mg tablet 500 mg PO Q8H #14 tabs 05/29/24 10/01/24 Rx dextroamphetamine-amphetamine 20 20 mg PO DAILY 10/01/24 10/01/24 History mg tablet duloxetine 20 mg capsule,delayed 40 mg PO DAILY 10/01/24 10/01/24 History release duloxetine 60 mg capsule,delayed 60 mg PO HS 10/01/24 10/01/24 History release lisinopril 10 mg tablet 10 mg PO DAILY 10/01/24 10/01/24 History aclsmhbw-cquz-qqzc 8 mg-folic 400 1 tab PO DAILY 10/01/24 10/01/24 History mcg-K 50 mcg-lutein 300 mcg tablet (Multivitamin Women 50 Plus) amoxicillin 500 mg-potassium 1 tab PO BIDM 4 days #8 tabs 10/04/24 Rx clavulanate 125 mg tablet gabapentin 300 mg capsule 300 mg PO TID 30 days #90 caps 10/04/24 Rx lidocaine 5 % topical patch 1 patch transdermal QAM 30 days 10/04/24 Rx #30 ea methylprednisolone 4 mg tablet See Rx Instructions .Route 10/04/24 Rx .COMPLEX #13 tabs Hospital Stay Data Consultations 10/01/24 20:34 ED Decision to Admit Stat 10/03/24 07:48 Consult Orthopedic Spine Surgery Routine 10/03/24 07:54 Consult Pain Management Routine Diagnostic Imagining Performed 10/01/24 16:32 MR lumbar spine wo con Stat 10/01/24 16:39 CT abd pelvis IV con only Stat Pending Results Patient Have Any Pending Studies at Discharge: No Discharge Instructions Given to Patient (Per Discharging Provider) You were admitted for acute exacerbation of your back pain. You were also noted to have a urinary tract infection. You were evaluated by a Spine Doctor, who did not advise any surgical intervention. You were also seen by Pain Management, who recommended the following: -Gabapentin 300mg three times a day -Lidocaine patches daily -Tylenol 650-1000mg every 6-8 hours as needed for pain -Follow up with Pain management Physician -Complete steroid dose pack as follows: You will be on day 2 of your steroid taper: Day 2: 4 mg (1 tablet) by mouth after dinner and 8 mg (2 tablets) at bedtime Day 3: 4 mg by mouth before breakfast, after lunch, after dinner, and at bedtime Day 4: 4 mg by mouth before breakfast, after lunch, and at bedtime Day 5: 4 mg by mouth before breakfast and at bedtime Day 6: 4 mg by mouth before breakfast You will continue a course of antibiotics by mouth for your urine infection. Please take 1 tablet Augmentin two times a day, your next dose is this evening. Total Time Total Time Spent Total Time Spent (In Minutes): 45
[2024-10-04 11:14] VITALS: BP 179/113
--- NOTE | 2024-10-04 14:31 | Orthopedic Progress Note ---
Date of Service October 04, 2024 Assessment & Plan (1) Pars defect with spondylolisthesis: (2) Lumbosacral spondylosis: (3) Lumbosacral radiculopathy: (4) Foraminal stenosis of lumbosacral region: (5) Spondylolisthesis, lumbosacral region: Plan Doing better, encouraged her to continue with PT. Follow up for possible epidural with pain management, I explained again that she should maximize all non-op options before considering surgery given her chronic back pain. Ok for discharge from my perspective. Subjective Looking better and more alert this AM, has been walking around halls. Reports new BP medicine has helped significantly with her chronic migraines, pain management note reports possible epidural as outpatient. Review of Systems All systems reviewed & are unremarkable except as noted in HPI & below. Physical Exam Neuro exam unchanged, better effort today, intact L2-S1 myotomes and dermatomes Results & Data Results & Data Laboratory Results . Diagnostic Findings . PG Care Time/CCT Total # of Minutes Spent Total Time Spent with Patient: Total time spent is greater than 50% in coordination of care (as documented) at patient's floor/unit and/or counseling patient: Coding Level of Care Code 40283 SUB INP/OBS CARE 12/06MIN Diagnoses Pars defect with spondylolisthesis M43.10 Osteoarthritis of spine with radiculopathy, lumbosacral region M47.27 Spinal osteoarthritis complication: with radiculopathy Lumbosacral radiculopathy M54.17 Foraminal stenosis of lumbosacral region M48.07 Spondylolisthesis, lumbosacral region M43.17 (2) Lumbosacral spondylosis Spinal osteoarthritis complication: with radiculopathy Qualified Code(s): M47.27 - Other spondylosis with radiculopathy, lumbosacral region
[2024-10-04] MEDS ORDERED: methylPREDNISolone 4 MG TAB PO SCH (21:00)
[2024-10-05] MEDS ORDERED: methylPREDNISolone 4 MG TAB PO SCH (07:00)
[2024-10-06] MEDS ORDERED: methylPREDNISolone 4 MG TAB PO SCH (07:00)
[2024-10-07] MEDS ORDERED: methylPREDNISolone 4 MG TAB PO SCH (07:00)
[2024-10-08] MEDS ORDERED: methylPREDNISolone 4 MG TAB PO SCH (07:00)
== END 2024-10-04 13:48 | disposition home health service (06) ==
LOC: EDINP 15:43 → ED 15:43 → SUATTDRO 21:40 → 2S 22:48